=== PATIENT | male | born 1930 | race Caucasian/White ===

== ENCOUNTER 2016-06-20 08:51 | Inpatient (IN) | payer MEDICARE, OTHER ==
[2016-06-20] MEDS ORDERED: IPRATROPIUM-ALBUTEROL 3 ML NEB INHALATION STA (10:01)
--- NOTE | 2016-06-20 10:10 | ED ---
General Adult HPI - General Chief complaint: Recheck/Abnormal Lab/Rx Stated complaint: LOW SUGAR Time Seen by Provider: 06/20/16 09:19 Source: patient Mode of arrival: wheelchair Limitations: no limitations - History of Present Illness Initial comments: This patient is an 85-year-old man who presents to be evaluated for a number of symptoms. The patient states that he woke this morning couple of hours ago with a feeling that his heart was racing and that he was short of breath. Patient also felt a little bit sweaty. He found that his blood sugar was around 50. Patient presented here because he was concerned about the heart palpitations and shortness of breath. He did eat and the blood sugar had improved somewhat. In reviewing the patient's systems, it is found that he has been having some exertional dyspnea going on for a week to 2, and he has also had a cough with some whitish sputum. Patient denies chest pain. He denies fever or chills. He has not had any congestion or upper respiratory symptoms. The patient does note that he has measured his pulse ox and it was in the upper 80s to 90, and did not seem to improve with taking his home nebulized treatment. -: hour(s) - Related Data Home Medications Medication Instructions Recorded Confirmed Fluticasone/Salmeterol [Advair 1 puff INHALATION RT-BID 01/16/14 06/20/16 100-50 Diskus] Diltiazem HCl [Diltiazem 24Hr ER] 180 mg PO DAILY 06/12/14 06/20/16 Ipratropium-Albuterol Nebulize 3 ml INHALATION RT-TID PRN 10/31/14 06/20/16 [Duoneb 0.5 mg-3 mg/3 ml Soln] Digoxin [Lanoxin] 125 mcg PO Q48H 07/31/15 06/20/16 ALPRAZolam [Xanax] 0.25 mg PO QID PRN 10/13/15 06/20/16 Allopurinol [Zyloprim] 100 mg PO DAILY 10/13/15 06/20/16 Warfarin [Coumadin] 2.5 mg PO SUMOWETHSA 11/11/15 06/20/16 Warfarin [Coumadin] 5 mg PO TUFR 11/11/15 06/20/16 Furosemide [Lasix] 20 mg PO TID 11/27/15 06/20/16 Insulin Detemir [Levemir] See Protocol SQ HS 06/20/16 06/20/16 [place]-3 Fatty Acids/Fish Oil [Fish 1 cap PO DAILY 06/20/16 06/20/16 Oil 1,000 mg Softgel] Psyllium Husk 100% [Metamucil] 6 gm PO DAILY 06/20/16 06/20/16 Simvastatin [Zocor] 10 mg PO Q48H 06/20/16 06/20/16 Previous Rx's Medication Instructions Recorded Glimepiride [Amaryl] 4 mg PO AC-BID tab 08/05/14 Metoprolol Succinate (ER) [Toprol 50 mg PO BID tab.er.24h 08/05/14 XL] Chlorthalidone [Hygroton] 12.5 mg PO DAILY tab 10/24/14 Allergies Allergy/AdvReac Type Severity Reaction Status Date / Time Sulfa (Sulfonamide Allergy Unknown Unknown Verified 06/20/16 10:47 Antibiotics) Childhood benazepril Allergy tongue Verified 06/20/16 10:47 swelling Review of Systems ROS Statement: Those systems with pertinent positive or pertinent negative responses have been documented in the HPI. ROS Other: All systems not noted in ROS Statement are negative. Constitutional: Reports: weakness (Generalized weakness and fatigue for about a week). Denies: fever, chills ENT: Denies: throat pain, congestion Respiratory: Reports: as per HPI, cough. Denies: wheezes, hemoptysis Cardiovascular: Reports: palpitations, dyspnea on exertion, orthopnea. Denies: chest pain, edema, syncope Endocrine: Reports: fatigue Gastrointestinal: Denies: abdominal pain, nausea, vomiting, melena, hematochezia Genitourinary: Reports: other (Chronic indwelling Henderson catheter for over a year ). Denies: dysuria, hematuria Musculoskeletal: Denies: back pain Skin: Denies: rash Neurological: Reports: weakness. Denies: headache, numbness, confusion Past Medical History Past Medical History: Atrial Fibrillation, Coronary Artery Disease (CAD), Cancer , Heart Failure, COPD, Diabetes Mellitus, GERD/Reflux, Hyperlipidemia, Hypertension, Osteoarthritis (OA), Pneumonia Additional Past Medical History / Comment(s): Recent pneumonia 10/23/14, Back pain with history of spinal stenosis and significant radicular pains. Chronic renal failure with stage III Chronic Kidney disease, Skin ca, Home O2@ 2 liters n/c @ HS. ,Chronic henderson catheter for BPH pt stated it was just changed thursday07-29-15.ibs.cellulitis lt index finger,neuropathy in feet History of Any Multi-Drug Resistant Organisms: Other MDRO Past Surgical History: Appendectomy, Cholecystectomy, Tonsillectomy Additional Past Surgical History / Comment(s): RIGHT LUNG TUMOR REMOVED ( hematoma) per patient., Vasectomy, Cataracts, PAIN CLINIC PROCEDURES Past Anesthesia/Blood Transfusion Reactions: No Reported Reaction Past Psychological History: Anxiety Additional Psychological History / Comment(s): pt served in [employer], worked at [employer]. pt lives with his , uses a walker when up. admits to falls from missing his chair and landing on floor. no current home care services. Smoking Status: Former smoker Past Alcohol Use History: None Reported Additional Past Alcohol Use History / Comment(s): started smoking at age 18- smoked 1-2 ppd quit 2003. pt stated when younger drank alot but quit 30 years ago Past Drug Use History: None Reported - Past Family History Father Family Medical History: Diabetes Mellitus Additional Family Medical History / Comment(s): at age 78- anuerysm Mother Family Medical History: CVA/TIA Additional Family Medical History / Comment(s): age 78- ?aneurysm General Exam Limitations: no limitations General appearance: alert, in no apparent distress Head exam: Present: atraumatic, normocephalic Eye exam: Present: normal appearance. Absent: scleral icterus, conjunctival injection Neck exam: Present: normal inspection Respiratory exam: Present: rhonchi. Absent: normal lung sounds bilaterally, wheezes, rales, stridor, chest wall tenderness, accessory muscle use, decreased breath sounds Cardiovascular Exam: Present: tachycardia (Rate is approximately 108 at my exam) , irregular rhythm, normal heart sounds. Absent: systolic murmur, diastolic murmur, rubs, gallop GI/Abdominal exam: Present: soft, organomegaly (Hepatomegaly). Absent: distended, tenderness, guarding, rebound, rigid, pulsatile mass, hernia Extremities exam: Present: normal inspection, normal capillary refill. Absent: pedal edema, calf tenderness Back exam: Present: normal inspection. Absent: CVA tenderness (R), CVA tenderness (L) Neurological exam: Present: alert Skin exam: Present: warm, dry, intact, normal color. Absent: rash Course Vital Signs 06/20/16 06/20/16 06/20/16 08:54 09:54 10:20 Temperature 96.9 F L Pulse Rate 99 94 101 H Respiratory 18 Rate Blood Pressure 133/69 127/76 O2 Sat by Pulse 93 L 91 L Oximetry 06/20/16 06/20/16 06/20/16 10:29 11:41 12:29 Temperature Pulse Rate 103 H 105 H 97 Respiratory 24 26 H Rate Blood Pressure 129/78 111/68 O2 Sat by Pulse 96 94 L Oximetry 06/20/16 06/20/16 06/20/16 13:33 14:29 15:26 Temperature 98.7 F 98 F Pulse Rate 91 103 H 94 Respiratory 26 H 26 H 24 Rate Blood Pressure 117/63 122/60 122/79 O2 Sat by Pulse 94 L 94 L 96 Oximetry 06/20/16 16:37 Temperature 97.8 F Pulse Rate 66 Respiratory 18 Rate Blood Pressure 150/78 O2 Sat by Pulse 100 Oximetry EKG Findings - EKG Results: EKG: interpreted by ERMD, normal axis, normal QRS EKG shows: tachycardia (Rate is approximately 103 bpm), atrial fibrillation - Blocks, [place], Hypertrophy, ST Abn: Repolarization changes or abnormalities: nonspecific abnormality, ST segment, and/or T wave Medical Decision Making - Lab Data Result diagrams: 06/20/16 09:21 06/20/16 09:21 Lab Results 06/20/16 06/20/16 06/20/16 Range/Units 09:03 09:21 09:21 WBC 13.6 H (3.8-10.6) k/uL RBC 4.49 (4.30-5.90) m/uL Hgb 13.6 (13.0-17.5) gm/dL Hct 41.5 (39.0-53.0) % MCV 92.6 (80.0-100.0) fL MCH 30.3 (25.0-35.0) pg MCHC 32.8 (31.0-37.0) g/dL RDW 13.8 (11.5-15.5) % Plt Count 352 (150-450) k/uL Neutrophils % 82 % Lymphocytes % 7 % Monocytes % 5 % Eosinophils % 1 % Basophils % 1 % Neutrophils # 11.1 H (1.3-7.7) k/uL Lymphocytes # 1.0 (1.0-4.8) k/uL Monocytes # 0.7 (0-1.0) k/uL Eosinophils # 0.2 (0-0.7) k/uL Basophils # 0.1 (0-0.2) k/uL PT (9.0-12.0) sec INR (<1.1) APTT (22.0-30.0) sec D-Dimer (<0.60) mg/L FEU Sodium 132 L (137-145) mmol/L Potassium 5.3 H (3.5-5.1) mmol/L Chloride 89 L (98-107) mmol/L Carbon Dioxide 33 H (22-30) mmol/L Anion Gap 10 mmol/L BUN 37 H (9-20) mg/dL Creatinine 1.21 (0.66-1.25) mg/dL Est GFR (MDRD) Af Amer >60 (>60 ml/min/1.73 sqM) Est GFR (MDRD) Non-Af 57 (>60 ml/min/1.73 sqM) Glucose 87 (74-99) mg/dL POC Glucose (mg/dL) 85 (75-99) mg/dL POC Glu Electronic Security Technician ID Jennifer Benson Plasma Lactic Acid Stalin (0.7-2.0) mmol/L Calcium 9.5 (8.4-10.2) mg/dL Magnesium 1.6 (1.6-2.3) mg/dL Total Bilirubin 0.7 (0.2-1.3) mg/dL AST 207 H (17-59) U/L ALT 171 H (21-72) U/L Alkaline Phosphatase 180 H (38-126) U/L Total Creatine Kinase (55-170) U/L CK-MB (CK-2) (0.0-2.4) ng/mL CK-MB (CK-2) Rel Index Troponin I (0.000-0.034) ng/mL NT-Pro-B Natriuret Pep pg/mL Total Protein 6.4 (6.3-8.2) g/dL Albumin 3.3 L (3.5-5.0) g/dL 06/20/16 06/20/16 06/20/16 Range/Units 09:21 09:21 09:21 WBC (3.8-10.6) k/uL RBC (4.30-5.90) m/uL Hgb (13.0-17.5) gm/dL Hct (39.0-53.0) % MCV (80.0-100.0) fL MCH (25.0-35.0) pg MCHC (31.0-37.0) g/dL RDW (11.5-15.5) % Plt Count (150-450) k/uL Neutrophils % % Lymphocytes % % Monocytes % % Eosinophils % % Basophils % % Neutrophils # (1.3-7.7) k/uL Lymphocytes # (1.0-4.8) k/uL Monocytes # (0-1.0) k/uL Eosinophils # (0-0.7) k/uL Basophils # (0-0.2) k/uL PT 57.1 H (9.0-12.0) sec INR 5.7 H* (<1.1) APTT 36.1 H (22.0-30.0) sec D-Dimer 2.86 H (<0.60) mg/L FEU Sodium (137-145) mmol/L Potassium (3.5-5.1) mmol/L Chloride (98-107) mmol/L Carbon Dioxide (22-30) mmol/L Anion Gap mmol/L BUN (9-20) mg/dL Creatinine (0.66-1.25) mg/dL Est GFR (MDRD) Af Amer (>60 ml/min/1.73 sqM) Est GFR (MDRD) Non-Af (>60 ml/min/1.73 sqM) Glucose (74-99) mg/dL POC Glucose (mg/dL) (75-99) mg/dL POC Glu Electronic Security Technician ID Plasma Lactic Acid Stalin (0.7-2.0) mmol/L Calcium (8.4-10.2) mg/dL Magnesium (1.6-2.3) mg/dL Total Bilirubin (0.2-1.3) mg/dL AST (17-59) U/L ALT (21-72) U/L Alkaline Phosphatase (38-126) U/L Total Creatine Kinase 147 (55-170) U/L CK-MB (CK-2) 3.4 H* (0.0-2.4) ng/mL CK-MB (CK-2) Rel Index 2.3 Troponin I <0.012 (0.000-0.034) ng/mL NT-Pro-B Natriuret Pep 1700 pg/mL Total Protein (6.3-8.2) g/dL Albumin (3.5-5.0) g/dL 06/20/16 Range/Units 11:14 WBC (3.8-10.6) k/uL RBC (4.30-5.90) m/uL Hgb (13.0-17.5) gm/dL Hct (39.0-53.0) % MCV (80.0-100.0) fL MCH (25.0-35.0) pg MCHC (31.0-37.0) g/dL RDW (11.5-15.5) % Plt Count (150-450) k/uL Neutrophils % % Lymphocytes % % Monocytes % % Eosinophils % % Basophils % % Neutrophils # (1.3-7.7) k/uL Lymphocytes # (1.0-4.8) k/uL Monocytes # (0-1.0) k/uL Eosinophils # (0-0.7) k/uL Basophils # (0-0.2) k/uL PT (9.0-12.0) sec INR (<1.1) APTT (22.0-30.0) sec D-Dimer (<0.60) mg/L FEU Sodium (137-145) mmol/L Potassium (3.5-5.1) mmol/L Chloride (98-107) mmol/L Carbon Dioxide (22-30) mmol/L Anion Gap mmol/L BUN (9-20) mg/dL Creatinine (0.66-1.25) mg/dL Est GFR (MDRD) Af Amer (>60 ml/min/1.73 sqM) Est GFR (MDRD) Non-Af (>60 ml/min/1.73 sqM) Glucose (74-99) mg/dL POC Glucose (mg/dL) (75-99) mg/dL POC Glu Electronic Security Technician ID Plasma Lactic Acid Stalin 1.9 (0.7-2.0) mmol/L Calcium (8.4-10.2) mg/dL Magnesium (1.6-2.3) mg/dL Total Bilirubin (0.2-1.3) mg/dL AST (17-59) U/L ALT (21-72) U/L Alkaline Phosphatase (38-126) U/L Total Creatine Kinase (55-170) U/L CK-MB (CK-2) (0.0-2.4) ng/mL CK-MB (CK-2) Rel Index Troponin I (0.000-0.034) ng/mL NT-Pro-B Natriuret Pep pg/mL Total Protein (6.3-8.2) g/dL Albumin (3.5-5.0) g/dL Disposition Clinical Impression: CHF exacerbation, Elevated d-dimer, Hyperkalemia, Coumadin toxicity Disposition: ADMITTED IP TO THIS HOSP Condition: Fair Referrals: Jatinder Collier MD [Primary Care Provider] - 1-2 days
[2016-06-20 10:22] LABS: Basophils # (A) 0.1 k/uL (0-0.2); Basophils % (A) 1 %; CHCM 33.6; Eosinophils # (A) 0.2 k/uL (0-0.7); Eosinophils % (A) 1 %; HCT 41.5 % (39.0-53.0); HDW 2.72; HGB 13.6 gm/dL (13.0-17.5); Luc # (Auto) 0.45; Luc % (Auto) 3; Lymphocytes % (A) 7 %; MCH 30.3 pg (25.0-35.0); MCHC 32.8 g/dL (31.0-37.0); MCV 92.6 fL (80.0-100.0); Mean Platelet Volume 6.7; Monocytes # (A) 0.7 k/uL (0-1.0); Monocytes % (A) 5 %; Neutrophils # (A) 11.1 k/uL (1.3-7.7); Neutrophils % (A) 82 %; RBC 4.49 m/uL (4.30-5.90); RDW 13.8 % (11.5-15.5); WBC 13.6 k/uL (3.8-10.6); WBC (Perox) 13.49
[2016-06-20 10:35] LABS: ALT 171 U/L (21-72); AST 207 U/L (17-59); Alkaline Phosphatase 180 U/L (38-126); Anion Gap 10 mmol/L; Blood Urea Nitrogen 37 mg/dL (9-20); Calcium 9.5 mg/dL (8.4-10.2); Carbon Dioxide 33 mmol/L (22-30); Chloride 89 mmol/L (98-107); Glucose 87 mg/dL (74-99); Magnesium 1.6 mg/dL (1.6-2.3); Non-African American GFR(MDRD) 57 (>60 ml/min/1.73 sqM); Potassium 5.3 mmol/L (3.5-5.1); Sodium 132 mmol/L (137-145); Total Bilirubin 0.7 mg/dL (0.2-1.3); Total Protein 6.4 g/dL (6.3-8.2)
[2016-06-20 10:41] LABS: Creatine Kinase 147 U/L (55-170)
[2016-06-20 10:42] LABS: Partial Thromboplastin Time 36.1 sec (22.0-30.0); Prothrombin Time 57.1 sec (9.0-12.0)
--- NOTE | 2016-06-20 10:45 | XR ---
EXAMINATION TYPE: XR chest 2V DATE OF EXAM: 06/20/2016 10:34 AM COMPARISON: Chest x-ray November 27, 2015. HISTORY: Shortness of breath. TECHNIQUE: Frontal and lateral views of the chest are obtained. FINDINGS: The cardiac silhouette size is stable and within normal limits with atherosclerotic thoraci c aorta. There is small right pleural effusion. There is increasing left basilar opacity upper lungs are clear without pneumothorax. Osseous structures are intact. IMPRESSION: New small right pleural effusion. Prominent left basilar infiltrate and/or atelectasis o n current study.
[2016-06-20 10:48] LABS: INR 5.7 (<1.1)
[2016-06-20] MEDS ORDERED: LEVOFLOXACIN 750MG-D5W PMX 750 MG in DEXTROSE/WATER 1 150ML.BAG IVPB STA (10:52)
[2016-06-20 10:55] LABS: Troponin I <0.012 ng/mL (0.000-0.034)
[2016-06-20 10:59] LABS: Creatine Kinase MB 3.4 ng/mL (0.0-2.4)
[2016-06-20] MEDS ORDERED: FUROSEMIDE 10 MG/ML 4 ML VIAL IV STA (12:46)
[2016-06-20] MEDS ORDERED: LORazepam 2 MG/ML SYRINGE IV STA (14:24)
[2016-06-20] MEDS ORDERED: MORPHINE SULFATE 4 MG/ML SYRINGE IV STA (14:24)
[2016-06-20 14:26] LABS: Glucose,Whole Blood 85 mg/dL (75-99)
[2016-06-20 18:15] LABS: Glucose,Whole Blood 57 mg/dL (75-99)
[2016-06-20] MEDS: DIGOXIN 125 MCG TAB PO SCH (18:54)
[2016-06-20 18:55] LABS: Glucose,Whole Blood 79 mg/dL (75-99)
[2016-06-20] MEDS: IPRATROPIUM-ALBUTEROL 3 ML NEB INHALATION PRN (19:37)
[2016-06-20] MEDS: METOPROLOL SUCCINATE (ER) 50 MG TAB.ER.24H PO SCH (20:22)
[2016-06-20 20:28] LABS: Glucose,Whole Blood 81 mg/dL (75-99)
[2016-06-20] MEDS ORDERED: INSULIN GLARGINE 100 UNIT/ML 10 ML VIAL SQ SCH (21:00)
[2016-06-20] MEDS ORDERED: FUROSEMIDE 20 MG TAB PO SCH (22:00)
[2016-06-20] MEDS: INSULIN GLARGINE 100 UNIT/ML 10 ML VIAL SQ SCH (23:43)
[2016-06-21 04:02] LABS: Prothrombin Time 52.1 sec (9.0-12.0)
[2016-06-21 04:09] LABS: ALT 156 U/L (21-72); AST 202 U/L (17-59); Alkaline Phosphatase 169 U/L (38-126); Anion Gap 10 mmol/L; Blood Urea Nitrogen 42 mg/dL (9-20); Calcium 9.5 mg/dL (8.4-10.2); Carbon Dioxide 32 mmol/L (22-30); Chloride 90 mmol/L (98-107); Non-African American GFR(MDRD) 48 (>60 ml/min/1.73 sqM); Potassium 4.7 mmol/L (3.5-5.1); Sodium 132 mmol/L (137-145); Total Bilirubin 0.7 mg/dL (0.2-1.3)
[2016-06-21 04:12] LABS: INR 5.2 (<1.1)
[2016-06-21 04:19] LABS: Glucose 50 mg/dL (74-99)
[2016-06-21 04:37] LABS: Hepatitis B Surface Ag Index 0.08
[2016-06-21 04:42] LABS: Hepatitis B Core IgM Index 0.05
[2016-06-21 04:44] LABS: Glucose,Whole Blood 75 mg/dL (75-99)
[2016-06-21 04:54] LABS: Hepatitis C Virus IgG Index 0.06
[2016-06-21 05:00] LABS: Hepatitis C Virus IgG Ab Negative (Negative)
[2016-06-21 06:14] LABS: Glucose,Whole Blood 94 mg/dL (75-99)
--- NOTE | 2016-06-21 06:22 | HP ---
DATE OF ADMISSION: CHIEF COMPLAINT: Shortness of breath. HISTORY OF PRESENT ILLNESS: This 85-year-old gentleman presents to the emergency room with complaints of shortness of breath. The patient said this morning he got up, he felt somewhat diaphoretic and noted his blood sugar was low. The patient understands the symptoms of hypoglycemia. He said after that he felt better. He fell asleep. He started having some heavy palpitations brief and then felt short of breath. Denied any chest pain, any fever or chills. The patient, in view of this, presents to the emergency room. He has history of multiple chronic conditions including diabetes, advanced COPD, chronic atrial fibrillation. The patient in the emergency room treated with some improvement. The symptoms seemed to have improved after he was given some Ativan. Patient was also given some diuretic because of an elevated BNP. The patient had an echocardiogram done couple of years ago where ejection fraction was 55 to 60% and mild to moderate aortic stenosis. The patient does have a history of chronic cough. Also has an atonic bladder and has a Cornejo catheter. Patient has chronic anxiety and BPH. PAST SURGICAL HISTORY: Significant for appendectomy, cholecystectomy, tonsillectomy and a partial lobectomy right lower lobe. There was a benign nodule. PERSONAL HISTORY: The patient is an ex-smoker, alcohol none. ALLERGIES: ANGIOEDEMA WITH ALEJANDRINA INHIBITORS. PATIENT ALLERGIC TO SULFA. MEDICATIONS: 1. Lantus 30 units every evening. He had actually cut it down last night. 2. Tramadol 50 mg p.r.n. t.i.d. 3. Zyrtec 1 tablet p.r.n. daily. 4. Glimepiride 4 mg b.i.d. 5. Advair 100/50, 1 puff b.i.d. 6. Warfarin 5 mg 3 days a week and 2.5 mg 4 days a week. 7. Chlorthalidone 25 mg daily. 8. Zocor 10 mg q.48 hours. 9. Metamucil daily. 10. Fish oil daily. 11. Toprol-XL 50 mg b.i.d. 12. DuoNeb updraft t.i.d. to q.i.d. 13. Amaryl 4 mg p.o. a.c. b.i.d. 14. Lasix 20 mg daily. 15. Cardizem CD 180 mg daily. 16. Digoxin 125 mcg every other day. 17. Hygroton 12.5 mg daily. 18. Allopurinol 100 mg daily. 19. Xanax 0.25 mg q.i.d. p.r.n. SOCIAL HISTORY: Patient is and lives with spouse. FAMILY MEDICAL HISTORY: Noncontributory. He has a son in adequate health. REVIEW OF SYSTEMS: NEURO: Denies any headaches, dizziness. PSYCH: Chronic anxiety. CARDIAC: Denies chest pain, angina. A very brief episode of palpitation. RESPIRATORY: Present complaint of shortness of breath, cough. No hemoptysis. GI: No nausea, vomiting, abdominal pain, diarrhea. : No symptoms of dysuria, hematuria, urgency, frequency. EXTREMITIES: No pain. CONSTITUTIONAL: No fever or chills. PHYSICAL EXAMINATION: Pleasant gentleman, at present is fairly comfortable in no major distress, is mildly tachypneic. Vital signs reveal temperature was 97.1, pulse 107, respirations 20, blood pressure recorded earlier was 113/70, pulse ox 95% on 3-L. HEENT: Normocephalic. Neck no JVD. Pupils reactive. Oral cavity is moist. The patient recently had a biopsy, which was reportedly nonmalignant ulcer. NECK: Reveals no JVD, carotid bruits, thyromegaly. No supraclavicular lymphadenopathy. CHEST EXAMINATION: The patient has a barrel-shaped chest with increased percussion noted bilaterally, generalized decreased air flow, scattered rhonchi, especially at the right base. CARDIAC: Distant heart sounds. S1, S2 with no gallops. Systolic murmur 2/6 left sternal border. Irregular rhythm. ABDOMEN: Soft. Bowel sounds present. EXTREMITIES: Reveal 1+ edema. NEUROLOGICALLY: Awake, alert, oriented with well coordinated movements. LABORATORY ASSESSMENT: Chest x-ray which reveals bilateral basilar infiltrates. White count 13.6, hemoglobin 13.6, INR 5.7. D-dimer 2.86. Sodium 132, potassium 5.3, CO2 of 133, BUN 37, creatinine 1.21, GFR 57. AST, ALT elevated at 207, 171. Troponins less than 0.112. The patient's bilirubin was normal. ASSESSMENT: 1. Dyspnea due to chronic obstructive pulmonary disease exacerbation. Rule out early pneumonia. 2. Chronic atrial fibrillation. 3. Diabetes mellitus. 4. Elevated liver function tests suggestive of hepatocellular. PLAN: The patient at present has been placed on IV antibiotics. The patient's statin drugs will be held. Patient's general condition discussed with the patient. Prognosis remains guarded. Will treat the patient with updrafts and antibiotic. Prognosis remains guarded. Patient will be followed by Dr. Denise upon my absence.
[2016-06-21] MEDS: SYMBICORT 80-4.5 MCG INHALER INHALATION SCH ×3 (06:36→10:16)
[2016-06-21] MEDS ORDERED: GLIMEPIRIDE 4 MG TAB PO SCH (07:30)
[2016-06-21] MEDS: IPRATROPIUM-ALBUTEROL 3 ML NEB INHALATION PRN ×3 (08:15→20:24)
[2016-06-21] MEDS: PIPERACILLIN-TAZOBACTAM 3.375 GM in DEXTROSE/WATER 1 50ML.BAG IVPB SCH ×4 (08:53→23:39)
[2016-06-21] MEDS: DILTIAZEM CD 180 MG CAP.ER.24H PO SCH (08:53)
[2016-06-21] MEDS: ALLOPURINOL 100 MG TAB PO SCH (08:53)
[2016-06-21] MEDS: CHLORTHALIDONE 25 MG TAB PO SCH (08:54)
[2016-06-21] MEDS: PSYLLIUM HUSK 100% 6 GM PACKET PO SCH (08:55)
[2016-06-21] MEDS ORDERED: ATORVASTATIN 10 MG TAB PO SCH (09:00)
[2016-06-21] MEDS ORDERED: FUROSEMIDE 10 MG/ML 2 ML VIAL IV ONE (09:00)
[2016-06-21] MEDS: METOPROLOL SUCCINATE (ER) 50 MG TAB.ER.24H PO SCH ×2 (09:07→20:14)
[2016-06-21 12:17] LABS: Glucose,Whole Blood 100 mg/dL (75-99)
--- NOTE | 2016-06-21 15:20 | ECHOF ---
Referral Reason:Heart Failure MEASUREMENTS -------- HEIGHT: 152.4 cm WEIGHT: 90.3 kg BP: RVIDd: 3.5 cm (< 3.3) IVSd: 1.4 cm (0.6 - 1.1) LVIDd: 3.9 cm (3.9 - 5.3) LVPWd: 1.2 cm (0.6 - 1.1) IVSs: 1.6 cm LVIDs: 3.5 cm LVPWs: 1.3 cm LAESV Index (A-L): 36.99 ml/m Ao Diam: 3.7 cm (2.0 - 3.7) AV Cusp: 1.9 cm (1.5 - 2.6) LA Diam: 5.4 cm (2.7 - 3.8) MV EXCURSION: 22.256 mm (> 18.000) MV EF SLOPE: 94 mm/s (70 - 150) EPSS: 1.0 cm MV E Gerardo: 0.96 m/s MV DecT: 186 ms MV A Gerardo: 0.76 m/s MV E/A Ratio: 1.27 AV maxP.86 mmHg AV meanP.96 mmHg RAP: 5.00 mmHg RVSP: 45.82 mmHg FINDINGS -------- Atrial fibrillation. This was a technically adequate study. There is mild concentric left ventricular hypertrophy. Overall left ventricular systolic function is low-normal with, an EF between 50 - 55 %. Basal inferior LV wall motion is hypokinetic. The right ventricle is normal in size. LA is moderately dilated 34-39 ml/m2 The right atrial size is normal. Peak/mean gradient across the Aortic Valve is 22.86mmHg / 13.96mmHg. Aov is stenotic with decrease opening. Mild mitral annular calcification present. Mild mitral regurgitation is present. Mild tricuspid regurgitation present. There is mild to moderate pulmonary hypertension. The right ventricular systolic pressure, as measured by Doppler, is 45.82mmHg. There is no pulmonic regurgitation present. The aortic root size is normal. There is no pericardial effusion. CONCLUSIONS -------- 1. There is mild concentric left ventricular hypertrophy. 2. There is mild to moderate pulmonary hypertension. 3. The right ventricular systolic pressure, as measured by Doppler, is 45.82mmHg. 4. Overall left ventricular systolic function is low-normal with, an EF between 50 - 55 %. 5. Basal inferior LV wall motion is hypokinetic. 6. LA is moderately dilated 34-39 ml/m2 7. Peak/mean gradient across the Aortic Valve is 22.86mmHg / 13.96mmHg. 8. Aov is stenotic with decrease opening. 9. Mild mitral annular calcification present. 10. Mild mitral regurgitation is present. 11. Mild tricuspid regurgitation present. ENGINEERING CLERK: Jennifer Loredo RDCS
--- NOTE | 2016-06-21 16:32 | PN ---
CHIEF COMPLAINT: Re-evaluation. HISTORY OF PRESENT ILLNESS: This is an 85-year-old who was admitted to the hospital because of shortness of breath. Patient clinically has evidence suggestive of COPD exacerbation. REVIEW OF SYSTEMS: NEURO: He denies any headaches, dizziness. PSYCH: Chronic anxiety. CARDIAC: No chest pain, angina, palpitations. RESPIRATORY: Denies shortness of breath today, does have cough. No significant sputum production. CARDIAC: No chest pain, palpitations. GI: No nausea, vomiting, abdominal pain, diarrhea. : No symptoms of dysuria or hematuria. Has IDC. EXTREMITIES: Denies pain. Does have edema which is improved. CONSTITUTIONAL: No fever or chills. PHYSICAL EXAMINATION: Pleasant gentleman. Vital signs revealed temperature 96.9, pulse 111, respirations 18, blood pressure 107/58, pulse ox 98% on 2 liters. HEENT: Normocephalic. NECK: No JVD. CHEST: Increased percussion noted bilateral with decreased generalized air flow bilateral scattered rhonchi, especially at the bases. CARDIAC: Distant heart sounds. S1, S2 with no gallops. Systolic murmur 2/6 left sternal border. ABDOMEN: Soft. Bowel sounds present. Extremities reveal trace edema. NEUROLOGIC: Awake, alert, oriented with well-coordinated movements. LABORATORY ASSESSMENT: Blood sugar was low this morning at 50, sodium 132, potassium 4.7, chloride 90, CO2 content 32. BUN 42, creatinine 1.1. The patient elevated liver enzymes 202, AST ALT is 156, etiology unclear. ASSESSMENT: 1. Chronic obstructive pulmonary disease exacerbation. 2. Chronic atrial fibrillation. 3. Diabetes mellitus with hypoglycemic episode probably due to hepatic inflammation. 4. Acute noninfected hepatitis, etiology undetermined. PLAN: Continue present medical regimen. The patient's condition discussed with the patient. The patient has some significant congestive heart failure symptoms. He had an echocardiogram done today. Continue COPD management ( ) the patient Glimepiride will be discontinued, patient's simvastatin was discontinued. Prognosis is guarded. Patient's condition discussed with the patient. Patient will be followed by Dr. Witt in my absence.
[2016-06-21 16:49] LABS: Glucose,Whole Blood 164 mg/dL (75-99)
[2016-06-21] MEDS: ALPRAZolam 0.25 MG TAB PO PRN (20:14)
[2016-06-21 20:33] LABS: Glucose,Whole Blood 281 mg/dL (75-99)
[2016-06-21] MEDS: INSULIN GLARGINE 100 UNIT/ML 10 ML VIAL SQ SCH (21:34)
[2016-06-22 05:52] LABS: Glucose,Whole Blood 75 mg/dL (75-99)
[2016-06-22 06:21] LABS: Calcium 9.3 mg/dL (8.4-10.2); Potassium 4.3 mmol/L (3.5-5.1); Total Bilirubin 0.6 mg/dL (0.2-1.3); Total Protein 5.5 g/dL (6.3-8.2)
--- NOTE | 2016-06-22 07:35 | XR ---
EXAMINATION TYPE: XR chest 2V DATE OF EXAM: 06/22/2016 6:35 AM COMPARISON: Prior chest x-ray 20 June 2016 HISTORY: Shortness of breath, COPD TECHNIQUE: Frontal and lateral views of the chest are obtained. FINDINGS: Similar findings. Prominent lung volumes compatible with COPD. Increased density persists in the retrocardiac location. Persistent blunting of the right costophrenic angle may reflect some at electasis, effusion, airspace disease. No evident pneumothorax. Heart size is stable. IMPRESSION: Correlate for possible pneumonia. Follow-up to resolution.
[2016-06-22 07:40] LABS: INR 3.5 (<1.1); Prothrombin Time 34.1 sec (9.0-12.0)
[2016-06-22] MEDS: PIPERACILLIN-TAZOBACTAM 3.375 GM in DEXTROSE/WATER 1 50ML.BAG IVPB SCH ×3 (08:20→23:15)
[2016-06-22] MEDS: PSYLLIUM HUSK 100% 6 GM PACKET PO SCH (08:20)
[2016-06-22] MEDS: ALLOPURINOL 100 MG TAB PO SCH (08:20)
[2016-06-22] MEDS: DILTIAZEM CD 180 MG CAP.ER.24H PO SCH (08:20)
[2016-06-22] MEDS: METOPROLOL SUCCINATE (ER) 50 MG TAB.ER.24H PO SCH ×2 (08:20→19:51)
[2016-06-22] MEDS: CHLORTHALIDONE 25 MG TAB PO SCH (08:20)
[2016-06-22] MEDS: SYMBICORT 80-4.5 MCG INHALER INHALATION SCH ×2 (08:32→20:52)
[2016-06-22] MEDS: IPRATROPIUM-ALBUTEROL 3 ML NEB INHALATION PRN ×3 (08:32→20:53)
[2016-06-22] MEDS ORDERED: Magnesium Replacement Protocol 1 EACH MISC MISCELLANE PRN (08:40)
--- NOTE | 2016-06-22 09:27 | P.PN ---
Progress Note - Text The patient is an 85-year-old gentleman, a patient of Dr. Jatinder Crook for whom I am covering. The patient was admitted 2 days previous with exacerbation of underlying COPD. It appears on chest x-ray that he has a retrocardiac infiltrate/pneumonia. Patient has been treated with antibiotics with IV piperacillin. Patient also has chronic atrial fibrillation, type 2 diabetes and recently has been found to have elevated liver function testing of unknown etiology. Patient still has a harsh cough. States though he feels somewhat better. Less short of breath. No chest pain. No nausea or vomiting. No abdominal discomfort. He also has chronic indwelling Cornejo catheter. Temperature is 96.9 with a pulse of 104 and irregular. Respirations are 18. Last blood pressure 128/67 and he is 94% saturated on 2 L. The patient does have a slight inspiratory wheeze on the right posterior base. Heart tones are somewhat irregular and distant. No definite murmurs or rubs appreciated. Abdomen is obese but soft and nontender. No unusual distal edema. He is alert and oriented. No cranial nerve deficits or focal weakness noted. INR this morning is 3.5. Labs reveal a sodium 131 with potassium 4.3. BUN was 53 with creatinine 1.17 with him a GFR of 38. Liver function tests are showing a decrease in AST down to 169. ALT is still at 137 and alk phos 152. Bilirubin normal at 0.6. Accu-Chek presently is 75. INR is improved from 5.2 down to 3.5. A chest x-ray today was compared to 2 days previous. Continued to show a retrocardiac density. Lung volumes compatible with COPD. Blunting of the right costophrenic angle was present. Overall outputs appear to be satisfactory. With 2 L. Although weight is slightly up at 91.4 kg from 90.7. Impressions and plans: Discussed with patient and family and staff at bedside. At this time we'll continue present antibiotics. Await results of further liver function tests with labs tomorrow. His cholesterol and diabetic medication has been held in light of elevated liver function tests.
[2016-06-22] MEDS: MAGNESIUM SULFATE-D5W PMX 1 GM in DEXTROSE/WATER 1 100ML.BAG IVPB SCH ×2 (09:29→10:35)
[2016-06-22 11:51] LABS: Glucose,Whole Blood 178 mg/dL (75-99)
[2016-06-22 17:05] LABS: Glucose,Whole Blood 255 mg/dL (75-99)
[2016-06-22] MEDS: DIGOXIN 125 MCG TAB PO SCH (17:44)
[2016-06-22 20:44] LABS: Glucose,Whole Blood 121 mg/dL (75-99)
[2016-06-22] MEDS: INSULIN LISPRO (humaLOG) 300 UNIT/3 ML VIAL SQ SCH (21:40)
[2016-06-22] MEDS: INSULIN GLARGINE 100 UNIT/ML 10 ML VIAL SQ SCH (21:43)
[2016-06-23 02:54] LABS: Glucose,Whole Blood 79 mg/dL (75-99)
[2016-06-23] MEDS ORDERED: FUROSEMIDE 10 MG/ML 2 ML VIAL IV ONE (04:02)
[2016-06-23] MEDS: ALPRAZolam 0.25 MG TAB PO PRN ×2 (04:50→20:45)
[2016-06-23 05:50] LABS: Glucose,Whole Blood 132 mg/dL (75-99)
[2016-06-23] MEDS: INSULIN LISPRO (humaLOG) 300 UNIT/3 ML VIAL SQ SCH ×4 (06:13→20:26)
[2016-06-23 06:18] LABS: Basophils # (A) 0.1 k/uL (0-0.2); Basophils % (A) 1 %; CH 30.9; CHCM 33.2; Eosinophils # (A) 0.2 k/uL (0-0.7); Eosinophils % (A) 2 %; HCT 37.5 % (39.0-53.0); HDW 2.62; HGB 12.3 gm/dL (13.0-17.5); Luc # (Auto) 0.42; Luc % (Auto) 3; Lymphocytes # (A) 0.8 k/uL (1.0-4.8); Lymphocytes % (A) 6 %; MCH 30.5 pg (25.0-35.0); MCHC 32.7 g/dL (31.0-37.0); MCV 93.3 fL (80.0-100.0); Mean Platelet Volume 6.8; Monocytes # (A) 0.6 k/uL (0-1.0); Monocytes % (A) 5 %; Neutrophils # (A) 10.3 k/uL (1.3-7.7); Neutrophils % (A) 83 %; RBC 4.02 m/uL (4.30-5.90); RDW 13.8 % (11.5-15.5); WBC 12.4 k/uL (3.8-10.6); WBC (Perox) 13.23
[2016-06-23 06:29] LABS: Calcium 9.4 mg/dL (8.4-10.2); INR 2.4 (<1.1); Magnesium 1.9 mg/dL (1.6-2.3); Potassium 4.1 mmol/L (3.5-5.1); Prothrombin Time 23.3 sec (9.0-12.0); Total Bilirubin 0.8 mg/dL (0.2-1.3); Total Protein 5.8 g/dL (6.3-8.2)
[2016-06-23] MEDS: IPRATROPIUM-ALBUTEROL 3 ML NEB INHALATION PRN (07:32)
[2016-06-23] MEDS: SYMBICORT 80-4.5 MCG INHALER INHALATION SCH ×2 (07:32→19:45)
[2016-06-23] MEDS ORDERED: IPRATROPIUM-ALBUTEROL 3 ML NEB INHALATION PRN (07:39)
[2016-06-23] MEDS: IPRATROPIUM-ALBUTEROL 3 ML NEB INHALATION SCH ×4 (07:47→19:45)
--- NOTE | 2016-06-23 07:54 | P.PN ---
Progress Note - Text The patient is an 85-year-old gentleman who I am covering for Dr. Jatinder Collier. Patient admitted 3 days previous with exacerbation of COPD and pneumonia. Other comorbidities include atrial fibrillation, type 2 diabetes and on this admission is found to have elevated liver function tests. This morning patient states he is a bit more short of breath. Did not rest well. Denies any nausea vomiting or chest pain or abdominal pain. Vital signs reveal temperature 90.8 with a pulse of 104 and irregular. Respirations are 26 and blood pressure is 129/63 he is 95% saturated on 3 L nasal cannula. He does have some diffuse rhonchi on respiratory exam. Heart tones are somewhat irregular and distant. He does have grade 1 edema present. Laboratory values: White count is 12.4 with a hemoglobin of 12.3 and a platelet count of 301. INR is 2.4 this morning. Coumadin has been held. Sodium is 129 with a potassium of 4.1. BUN is 53 with creatinine 1.53 giving him a GFR of 43. Blood sugars 136. Liver function tests still elevated with AST of 182 ALT of 141 and alk phos of 162. Bilirubin is normal at 0.8. Impressions and plans: Regarding respiratory status we will increase his respiratory treatments to 4 times a day and when necessary. Chest x-ray to be done. Corticosteroids have been added to his regime. Ultrasound of the abdomen has been ordered with attention to the biliary tree and pancreas. Continue to follow-up labs with liver function tests and INR.
[2016-06-23] MEDS: PSYLLIUM HUSK 100% 6 GM PACKET PO SCH (08:38)
[2016-06-23] MEDS: DILTIAZEM CD 180 MG CAP.ER.24H PO SCH (08:39)
[2016-06-23] MEDS: CHLORTHALIDONE 25 MG TAB PO SCH (08:39)
[2016-06-23] MEDS: ALLOPURINOL 100 MG TAB PO SCH (08:39)
[2016-06-23] MEDS: methylPREDNISolone SOD SUCCI 40 MG/ML 1 ML VIAL IV SCH ×2 (08:39→15:15)
[2016-06-23] MEDS: METOPROLOL SUCCINATE (ER) 50 MG TAB.ER.24H PO SCH ×2 (08:40→20:00)
[2016-06-23] MEDS: PIPERACILLIN-TAZOBACTAM 3.375 GM in DEXTROSE/WATER 1 50ML.BAG IVPB SCH ×2 (08:43→15:16)
[2016-06-23 11:33] LABS: Glucose,Whole Blood 164 mg/dL (75-99)
--- NOTE | 2016-06-23 11:53 | CDI ---
In responding to this query, please exercise your independent professional judgment. The [facility] Coding Staff and Clinical Documentation Specialists appreciate your assistance in clarifying documentation, maintaining compliance with coding guidelines, accurately documenting patients condition and capturing severity of illness. The fact that a question is asked does not imply that any particular answer is desired or expected. Communication forms are a method of clarifying documentation and are not made part of the Legal Health Record. Thank you in advance for your clarification. Last Revision, July 2015 Tyrell Hernandez [address] [facility] [place] [address] Documentation Clarification Form Date: 06/23/2016 11:45:00 AM From: Aiyana Hoyt, CCS, CCDS Admit Date: 06/20/2016 5:05:00 PM Patient Name: Aguila Wall Visit Number: [id number] Discharge Date: Dr. Ephraim Witt: CHF is documented in the EC note as an exacerbation. In the attending PN 06/21, CHF is documented as "the patient is having significant congestive heart failure symptoms". History/Risk Factors: CHF, COPD, DM, Chronic Atrial Fibrillation, former smoker. Clinical Indicators: VS/Pulse OX: HR 90s-103, PO 93 ra, 91 2Lnc BNP: 1700 Echocardiogram Results: EF50-55%, left ventricular systolic function low normal , mild-moderate pulmonary hypertension. Chest X Ray: New small right pleural effusion, prominent left basilar infiltrate and/or atelectasis. Treatment: po & IV Lasix, O2 2Lnc, Albuterol INH, IV Levaquin, IV Ativan, Insulin sc Consults: Cardiac rehab, Dietitian In your professional opinion, can you please clarify the acuity and type of CHF if known? Acute Chronic Acute on Chronic AND Systolic Diastolic Systolic and Diastolic Cor Pulmonale (Right Sided HF w/ Pulmonary HTN) Unable to determine Other, please specify If known, please specify if Heart Failure is due to: Hypertension Rheumatic Fever Please document in your progress notes and discharge summary in order to capture severity of illness and risk of mortality. Include clinical findings that support your diagnosis. FYI: Press F11 to launch patient chart. Place X here if this finding has no clinical significance, is not applicable or if you are not able to provide any additional documentation. Thank You. TAMI
--- NOTE | 2016-06-23 15:03 | XR ---
EXAMINATION TYPE: XR chest 2V DATE OF EXAM: 06/23/2016 2:09 PM COMPARISON: Prior chest x-ray June HISTORY: Pneumonia, cough TECHNIQUE: Frontal and lateral views of the chest are obtained on 3 images. FINDINGS: Similar findings. Retrocardiac density persists. There is patchy density at the right lung base. IMPRESSION: Findings suggest basilar pneumonia. There may be underlying COPD.
--- NOTE | 2016-06-23 16:17 | US ---
EXAMINATION TYPE: US abdomen limited DATE OF EXAM: 06/23/2016 3:58 PM COMPARISON: Prior CT abdomen pelvis 20 October 2014 CLINICAL HISTORY: elevated liver tests. EXAM MEASUREMENTS: Liver Length: 21.3 cm Gallbladder Wall: Surgically absent CBD: 0.5 cm Right Kidney: 9.8 x 4.1 x 5.4 cm TECHNOLOGIST IMPRESSION: Pancreas: Obscured by overlying midline bowel gas Liver: enlarged at 21.3cm, heterogeneous with multiple ill-defined lesions seen throughout with larg est measuring 5.6cm Gallbladder: Surgically absent Evidence for sonographic Dixon's sign: no CBD: visualized portions wnl, limited by overlying bowel gas Right Kidney: wnl There is no ascites. IMPRESSION: Findings suggestive of metastatic disease to the liver.
[2016-06-23 16:35] LABS: Glucose,Whole Blood 190 mg/dL (75-99)
[2016-06-23 20:24] LABS: Glucose,Whole Blood 241 mg/dL (75-99)
[2016-06-23] MEDS: INSULIN GLARGINE 100 UNIT/ML 10 ML VIAL SQ SCH (20:26)
[2016-06-24] MEDS: methylPREDNISolone SOD SUCCI 40 MG/ML 1 ML VIAL IV SCH ×3 (00:18→15:48)
[2016-06-24 05:51] LABS: Glucose,Whole Blood 152 mg/dL (75-99)
[2016-06-24] MEDS: INSULIN LISPRO (humaLOG) 300 UNIT/3 ML VIAL SQ SCH ×4 (06:00→20:56)
[2016-06-24 06:47] LABS: INR 2.2 (<1.1); Prothrombin Time 21.6 sec (9.0-12.0)
[2016-06-24 06:54] LABS: Calcium 9.4 mg/dL (8.4-10.2); Total Bilirubin 0.8 mg/dL (0.2-1.3)
[2016-06-24 06:55] LABS: Potassium 4.6 mmol/L (3.5-5.1)
--- NOTE | 2016-06-24 08:13 | P.PN ---
Progress Note - Text The patient is an 85-year-old gentleman of Dr. Crook for whom I am covering. Patient was admitted approximately 4 days ago with exacerbation of COPD with pneumonia. Patient has underlying atrial fibrillation along with a type 2 diabetes. The patient also has acute on chronic diastolic dysfunction. And was also found to have elevated liver function tests on admission that despite stopping his statins have not improved. In fact he had a ultrasound yesterday that showed significant lesions in the liver suggestive of underlying metastatic disease. Patient states his respiratory status is better today than yesterday as patient has been started on corticosteroids. He denies any chest pain. No nausea or vomiting or abdominal pain. Vital signs reveal temperature 98.7 with a pulse of 92 and respirations 20. Blood pressure is 125/71 and he is 93% saturated on 2-1/2 L nasal cannula. Head and neck exam unremarkable. Lungs still show some mild or rhonchi and high -pitched wheeze but much better than yesterday. Abdomen is nontender. No unusual edema. No neurological changes. Laboratory values INR is 2.2. Sodium 130 with a potassium of 4.6. BUN is 64 with creatinine 1.59 given him a GFR of 42. A blood sugar was 162 this morning on corticosteroids Liver function tests still elevated with an alk phos of 156 and elevated AST and ALT of 161 and 132 respectively. Albumin is 3.0. Bilirubin normal at 0.8. Once again ultrasound showed multiple ill-defined lesions suggestive of metastatic disease. Impressions and plans: Continue antibiotics along with corticosteroids and respiratory treatments to improve his pulmonary status. Discussed with patient and staff. We will ask gastroenterology to evaluate regarding the abnormal liver function tests and abnormal ultrasound.
[2016-06-24] MEDS: PSYLLIUM HUSK 100% 6 GM PACKET PO SCH (08:31)
[2016-06-24] MEDS: SYMBICORT 80-4.5 MCG INHALER INHALATION SCH ×2 (08:35→20:05)
[2016-06-24] MEDS: IPRATROPIUM-ALBUTEROL 3 ML NEB INHALATION SCH ×4 (08:36→20:05)
--- NOTE | 2016-06-24 09:03 | P.CONS ---
History of Present Illness - Reason for Consult Consult date: 06/24/16 elevated liver enzymes/mass Requesting physician: Ephraim Witt - History of Present Illness 85-year-old gentleman patient of Dr. Collier with a past medical history of benign lung nodule status post partial right lobectomy, COPD, chronic diarrhea, chronic kidney disease, squamous skin carcinoma, urinary retention, chronic atrial fibrillation with Coumadin monitoring, diabetes mellitus, and cholecystectomy. Patient presents with acute dyspnea exacerbated over the last 4-5 days. Consultation requested for elevated liver enzymes with ultrasound imaging suggestive of hepatomegaly 21.3 cm, metastatic disease to the liver with multiple ill-defined lesions seen throughout largest measuring 5.6 cm. Total bilirubin on admission 0.7. AST 161-207. ALT 132-171. Alkaline phosphatase 156-180. Upon review of medical records transaminases and alkaline phosphatase within normal limits November 2015. Hepatitis panel negative. No history of known liver problems or hepatitis. No history of alcoholism. Patient denies abdominal pain but reports looser bowel movements which has been chronic in nature but he noticed some to be more dark black like in color prior to admission. Hemoglobin 12.3. Admission INR 5.7 currently 2.2. D-dimer 2.86. Creatinine 1.5. Chest x-ray correlate for possible pneumonia. Colonoscopy October 2013 for diarrhea reported small adenoma sigmoid polyp, mild diverticulosis, and weak anal sphincter tone without evidence of colonic inflammation. Review of Systems Constitutional: Denies fever, chills, sweats, weight gain, or loss. HEENT: Negative for migraines, blurred vision or loss, earaches, drainage, tinnitus, oral mucosal lesions, dysphagia, or odynophagia. Cardiac: Atrial fibrillation Negative for chest pain, arrhythmias, or palpitation. Respiratory: COPD. Negative for shortness of breath, hemoptysis, cough, or sputum production. Gastrointestinal: See HPI for pertinent findings. Genitourinary: Urinary retention Negative for hematuria, urgency, frequency, polyuria, dysuria, or penile discharge. Musculoskeletal: Negative for muscle aches, swelling, arthritis, and arthralgias. Neurologic: Negative for stroke or TIA. Nephrology: Chronic kidney disease Endocrine: Diabetes mellitus Negative for thyroid problems. Skin: Skin carcinoma Negative for rash or itching. Psychiatric: anxiety All systems: negative (See HPI) Past Medical History Past Medical History: Atrial Fibrillation, Coronary Artery Disease (CAD), Cancer , Heart Failure, COPD, Diabetes Mellitus, Hyperlipidemia, Hypertension, Osteoarthritis (OA), Pneumonia Additional Past Medical History / Comment(s): Back pain with history of spinal stenosis"bulging disc" and significant radicular pains(pain clinic procedures done). Chronic renal failure with stage III Chronic Kidney disease, Skin ca, Home O2@ 2 liters n/c @ HS. Chronic henderson catheter for BPH pt stated it was just changed 06-02-16, ibs.cellulitis lt index finger,neuropathy in feet. had sores/ulcerations in mouth -had bx in past 2 weeks pt stated was neg. but now has intermittent burning sensation like pepper is on his tongue.problems with balance uses walker. History of Any Multi-Drug Resistant Organisms: Other MDRO Past Surgical History: Appendectomy, Cholecystectomy, Tonsillectomy Additional Past Surgical History / Comment(s): RIGHT LUNG TUMOR REMOVED ( hematoma) per patient., Vasectomy, Cataracts, PAIN CLINIC PROCEDURES, oral bx- neg Past Anesthesia/Blood Transfusion Reactions: No Reported Reaction Past Psychological History: Anxiety Additional Psychological History / Comment(s): pt served in [employer], worked at [employer]. pt lives with his , uses a walker when up. admits to falls from missing his chair and landing on floor. no current home care services. Smoking Status: Former smoker Past Alcohol Use History: Heavy Additional Past Alcohol Use History / Comment(s): started smoking at age 18- smoked 1-2 ppd quit 2003. pt stated when younger drank alot but quit 30 years ago Past Drug Use History: None Reported - Past Family History Father Family Medical History: Diabetes Mellitus Additional Family Medical History / Comment(s): at age 78- anuerysm Mother Family Medical History: CVA/TIA Additional Family Medical History / Comment(s): age 78- ?aneurysm Medications and Allergies Home Medications Medication Instructions Recorded Confirmed Type Fluticasone/Salmeterol [Advair 1 puff INHALATION RT-BID 01/16/14 06/20/16 History 100-50 Diskus] Diltiazem HCl [Diltiazem 24Hr ER] 180 mg PO DAILY 06/12/14 06/20/16 History Ipratropium-Albuterol Nebulize 3 ml INHALATION RT-TID PRN 10/31/14 06/20/16 History [Duoneb 0.5 mg-3 mg/3 ml Soln] Digoxin [Lanoxin] 125 mcg PO Q48H 07/31/15 06/20/16 History ALPRAZolam [Xanax] 0.25 mg PO QID PRN 10/13/15 06/20/16 History Allopurinol [Zyloprim] 100 mg PO DAILY 10/13/15 06/20/16 History Warfarin [Coumadin] 2.5 mg PO SUMOWETHSA 11/11/15 06/20/16 History Warfarin [Coumadin] 5 mg PO TUFR 11/11/15 06/20/16 History Furosemide [Lasix] 20 mg PO TID 11/27/15 06/20/16 History Insulin Detemir [Levemir] See Protocol SQ HS 06/20/16 06/20/16 History Ackerly-3 Fatty Acids/Fish Oil [Fish 1 cap PO DAILY 06/20/16 06/20/16 History Oil 1,000 mg Softgel] Psyllium Husk 100% [Metamucil] 6 gm PO DAILY 06/20/16 06/20/16 History Simvastatin [Zocor] 10 mg PO Q48H 06/20/16 06/20/16 History Allergies Allergy/AdvReac Type Severity Reaction Status Date / Time Sulfa (Sulfonamide Allergy Unknown Unknown Verified 06/20/16 10:47 Antibiotics) Childhood benazepril Allergy tongue Verified 06/20/16 10:47 swelling Physical Exam Vitals: Vital Signs Temp Pulse Pulse Resp BP Pulse Ox 06/24/16 08:48 77 06/24/16 08:36 96 96 06/24/16 03:38 97 F L 92 20 125/71 93 L 06/24/16 00:00 97 F L 94 20 132/70 93 L 06/23/16 20:00 96.8 F L 105 H 20 138/69 95 06/23/16 19:45 94 06/23/16 15:15 96.9 F L 101 H 20 125/72 91 L 06/23/16 11:37 96 06/23/16 11:29 100 06/23/16 11:15 97.3 F L 95 20 129/72 93 L Intake and Output 06/23/16 06/24/16 06/24/16 22:59 06:59 14:59 Intake Total 240 0 Output Total 600 210 Balance -360 -210 0 Intake: Oral 240 0 Output: Urine 600 210 Other: Voiding Method Indwelling Catheter Indwelling Catheter # Voids 1 Weight 91.2 kg Results CBC & Chem 7: 06/23/16 06:03 06/24/16 06:20 Labs: Abnormal Lab Results - Last 24 Hours (Table) 06/23/16 06/23/16 06/23/16 Range/Units 11:16 16:27 20:22 PT (9.0-12.0) sec Sodium (137-145) mmol/L Chloride (98-107) mmol/L BUN (9-20) mg/dL Creatinine (0.66-1.25) mg/dL Glucose (74-99) mg/dL POC Glucose (mg/dL) 164 H 190 H 241 H (75-99) mg/dL AST (17-59) U/L ALT (21-72) U/L Alkaline Phosphatase (38-126) U/L Total Protein (6.3-8.2) g/dL Albumin (3.5-5.0) g/dL 06/24/16 06/24/16 06/24/16 Range/Units 05:48 06:20 06:20 PT 21.6 H (9.0-12.0) sec Sodium 130 L (137-145) mmol/L Chloride 90 L (98-107) mmol/L BUN 64 H (9-20) mg/dL Creatinine 1.59 H (0.66-1.25) mg/dL Glucose 162 H (74-99) mg/dL POC Glucose (mg/dL) 152 H (75-99) mg/dL AST 161 H (17-59) U/L ALT 132 H (21-72) U/L Alkaline Phosphatase 156 H (38-126) U/L Total Protein 6.0 L (6.3-8.2) g/dL Albumin 3.0 L (3.5-5.0) g/dL US - abdomen: report reviewed (Reviewed by Dr. Tejeda) Assessment and Plan (1) Elevated liver enzymes Narrative/Plan: 85-year-old gentleman presents with acute dyspnea and transaminitis. Ultrasound imaging reported hepatomegaly with multiple liver masses suspicious for metastatic disease. Additionally patient reports acute on chronic diarrhea dark -black colored bowel movements possible GI bleeding. History of atrial fibrillation with Coumadin monitoring INR presently 2.2. Status: Acute (2) Liver masses Status: Acute Plan: 1. AFP/CEA. 2. CT Chest/Abd/pelvis. 3. Hemoccult stool testing. 4. Anticoagulation on hold. Continue to monitor CBC. Further recommendations upon review of CT imaging possible liver biopsy. 5. Case discussed with Dr. Witt. Will follow closely with you. Thank you for this kind referral and the opportunity to participate in the care of your patient. This consultation was discussed with Dr. Tejeda. The impression and plan of care have been directed as dictated.
[2016-06-24] MEDS: ALLOPURINOL 100 MG TAB PO SCH (09:14)
[2016-06-24] MEDS: CHLORTHALIDONE 25 MG TAB PO SCH (09:14)
[2016-06-24] MEDS: IOHEXOL 350 MG/ML 25 ML BOTTLE (ORAL USE) PO PRN ×2 (09:15→10:19)
[2016-06-24] MEDS: DILTIAZEM CD 180 MG CAP.ER.24H PO SCH (09:15)
[2016-06-24] MEDS: METOPROLOL SUCCINATE (ER) 50 MG TAB.ER.24H PO SCH ×2 (09:15→20:56)
[2016-06-24] MEDS: PIPERACILLIN-TAZOBACTAM 3.375 GM in DEXTROSE/WATER 1 50ML.BAG IVPB SCH ×3 (09:18→15:51)
[2016-06-24 11:37] LABS: Glucose,Whole Blood 270 mg/dL (75-99)
--- NOTE | 2016-06-24 11:46 | CT ---
EXAMINATION TYPE: CT ChestAbdPelvis wo con DATE OF EXAM: 06/24/2016 11:05 AM COMPARISON: CT abdomen and pelvis 10/20/2014 and ultrasound 06/23/2016. HISTORY: 85-year-old male with liver mass, SOB TECHNIQUE: Contiguous axial scanning of the chest, abdomen, and pelvis without IV contrast. Coronal a nd sagittal reconstructions performed. CT DLP: 1419.3 mGycm Automated exposure control for dose reduction was used. FINDINGS: CHEST: Heart is normal size without pericardial effusion. Coronary vessel calcifications are present and are remarkable for coronary artery disease. [id number] atherosclerotic calcifications throughout the aorta with ectasia of the upper descen ding thoracic aorta at 3.0 cm. There is also large caliber of the main right and left pulmonary arteries at 3.0 and 2.7 cm, respecti vely, suggesting underlying pulmonary arterial hypertension. Mild to moderate bilateral gynecomastia. There is mediastinal lymphadenopathy measuring up to 2.6 cm upper right paraesophageal, 1.9 cm precar inal, 3.9 cm subcarinal, and probable left infrahilar lymphadenopathy and/or mass which attenuates th e left lower lobe bronchus. Extensive consolidation and/or mass is present throughout the basilar lef t lower lobe weight small to moderate-sized pleural effusion. Additional pulmonary nodules are present in the right base measuring up to 1.9 cm. Some reticular [place] at the right base is probably in part chronic from scarring and fibrosis. ABDOMEN: Numerous hypodense lesions throughout the liver with trace perihepatic ascites. Cholecystectomy clips are present. There is some 1.4 cm soft tissue nodularity in the upper left para-aortic retroperitoneum. Adrenal glands, kidneys, spleen, atrophic pancreas show no gross abnormality on noncontrast CT. Mild to moderate atherosclerotic calcifications within the abdominal aorta and iliac arteries with fu siform ectasia infrarenal abdominal aorta 2.7 cm. 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 No dilated small bowel or free air. Mild stool burden without pericolonic inflammatory change. PELVIS: Circumferential bladder wall thickening with Cornejo catheter in place. Intraluminal bladder air likely relating to instrumentation. Prostatomegaly at 5.4 cm wide. No abnormal fluid collection in the pelv is. BONES: Mild degenerative changes of the hips. Additional degenerative changes throughout the lumbar spine li ángela with a spinal canal stenosis at L4-L5. Endplate spondylosis midthoracic spine. There is some sub tle bony irregularity involving the right lateral fifth rib. Otherwise, no osseous destructive proces s. IMPRESSION: 1. METASTATIC DISEASE POSSIBLY FROM A LUNG PRIMARY GIVEN MASSLIKE CONSOLIDATION AT THE LEFT HILUM/INF RAHILAR REGION WITH NARROWING OF THE LEFT LOWER LOBE BRONCHUS. THERE IS EXTENSIVE CONSOLIDATION THROU GHOUT THE BASILAR LEFT LOWER LOBE WHICH COULD BE A COMBINATION OF MASS, ATELECTASIS, AND/OR POSTOBSTR UCTIVE PNEUMONITIS. [id number] LEFT PLEURAL EFFUSION. 2. METASTATIC DISEASE CHARACTERIZED BY MEDIASTINAL LYMPHADENOPATHY MEASURING UP TO 3.9 CM. THERE ARE RIGHT BASILAR PULMONARY NODULES MEASURING UP TO 1.9 CM WHICH ARE SUSPICIOUS, DIFFUSE METASTATIC DISEA SE INVOLVING THE LIVER AND POSSIBLE METASTATIC UPPER LEFT PARA-AORTIC LYMPHADENOPATHY MEASURING 1.4 C M. 3. PULMONARY ARTERIAL HYPERTENSION, CIRCUMFERENTIAL BLADDER WALL THICKENING WHICH COULD REFLECT CYSTI TIS OR BLADDER WALL HYPERTROPHY, PROSTATOMEGALY (5.4 CM WIDE), AND L4-L5 SPINAL CANAL STENOSIS.
[2016-06-24 16:40] LABS: Glucose,Whole Blood 182 mg/dL (75-99)
[2016-06-24] MEDS: DIGOXIN 125 MCG TAB PO SCH ×2 (18:12→18:32)
[2016-06-24 20:24] LABS: Glucose,Whole Blood 278 mg/dL (75-99)
[2016-06-24] MEDS: INSULIN GLARGINE 100 UNIT/ML 10 ML VIAL SQ SCH (20:56)
[2016-06-24] MEDS: ALPRAZolam 0.25 MG TAB PO PRN (20:58)
[2016-06-25] MEDS: methylPREDNISolone SOD SUCCI 40 MG/ML 1 ML VIAL IV SCH (00:14)
[2016-06-25] MEDS: PIPERACILLIN-TAZOBACTAM 3.375 GM in DEXTROSE/WATER 1 50ML.BAG IVPB SCH ×4 (00:14→23:41)
[2016-06-25] MEDS: INSULIN LISPRO (humaLOG) 300 UNIT/3 ML VIAL SQ SCH ×4 (06:24→22:19)
[2016-06-25 06:28] LABS: Glucose,Whole Blood 129 mg/dL (75-99)
[2016-06-25 06:36] LABS: Calcium 9.4 mg/dL (8.4-10.2); Potassium 4.4 mmol/L (3.5-5.1)
[2016-06-25 06:38] LABS: Prothrombin Time 19.3 sec (9.0-12.0)
[2016-06-25 06:53] LABS: CH 31.5; HDW 2.65; HGB 12.4 gm/dL (13.0-17.5); MCH 30.3 pg (25.0-35.0); MCHC 32.5 g/dL (31.0-37.0); MCV 93.1 fL (80.0-100.0); Mean Platelet Volume 7.8; RBC 4.08 m/uL (4.30-5.90); RDW 14.1 % (11.5-15.5)
[2016-06-25] MEDS ORDERED: PHYTONADIONE ORAL 5 MG/5 ML ORAL.SYRG PO STA (08:02)
--- NOTE | 2016-06-25 08:17 | P.PN ---
Progress Note - Text The patient is an 85-year-old gentleman of Dr. Crook for whom I am covering. Patient was admitted approximately 5 days ago with exacerbation of COPD and pneumonia. The patient has had a history of atrial fibrillation along with type 2 diabetes and acute on chronic diastolic congestive heart failure. On admission his liver function tests were elevated and despite stopping his statins the liver function tests did not improve. Patient has had imaging studies with an ultrasound and CAT scan revealing a suspicious area in the lung and possible metastatic disease to the liver. Overall patient's respiratory status appears to be improving on corticosteroids and respiratory treatments. He is generally weak. He does not complain of any nausea or vomiting or abdominal pain this morning. Vital signs reveal temperature of 96.8 with a pulse of 90 and respirations 20. Blood pressure is 143/72 and he is 94% saturated on 2 L nasal cannula. Head and neck exam unremarkable. Lungs to reveals some scattered rhonchi but generally remained fairly clear. Heart tones are distant with a controlled rate. Abdomen is obese but nontender. Patient has some grade 1 pedal edema. Generalized medical weakness but no focal deficits at this time. Laboratory values: White count is elevated at 18 but he is on prednisone. Hemoglobin is 12.4 and platelet count is 350. INR this morning is 2.0. Coumadin has been held for several days. Sodium is 130 with a potassium 4.4. BUN has risen to 74 and creatinine is 1.5 to given him a GFR of 44. Blood sugar is 126. CAT scan See report but does appear to show a suspicious lesion in the left lower lobe bronchus with the mass at or consolidation and moderate pleural effusion. Other pulmonary nodules were present and once again mediastinal adenopathy is present and suspicious diffuse metastatic liver disease also seen. Impressions and plans: Overall this gentleman who presented with exacerbation of COPD and pneumonia who had initial elevated liver function tests appears that he may have an underlying malignancy likely pulmonary in origin with metastatic disease. Gastroenterology is on the case. We will ask pulmonary medicine to evaluate. INR is 2.0. We will give him 1 dose of vitamin K today in case any further invasive testing is needed in the near future. Also have stopped his hygroton in light of elevation of his BUN. Discussed in generalities with the patient this morning regarding need for further evaluation based on the imaging studies.
--- NOTE | 2016-06-25 09:06 | P.PN ---
Subjective Principal diagnosis: liver mass 85-year-old gentleman admitted with dyspnea with radiographic imaging reporting liver masses with elevated liver enzymes. Computed tomography scan chest abdomen and pelvis reported lung masses highly suspicious for underlying malignancy. This morning he is confused hallucinating. Family at bedside. Nurse reports no episodes of bloody bowel movements. Objective - Vital Signs Vital signs: Vital Signs Temp 96.8 F L 06/25/16 04:00 Pulse 90 06/25/16 04:00 Resp 20 06/25/16 04:00 BP 143/72 06/25/16 04:00 Pulse Ox 94 L 06/25/16 04:00 Intake & Output 06/24/16 06/25/16 06/25/16 18:59 06:59 18:59 Intake Total 350 50 Output Total 900 Balance 350 -850 Weight 92.1 kg Intake: IV 50 50 Piperacillin-Tazobactam 3 50 50 .375 gm In Dextrose/Water 1 50ml.bag @ 12.5 mls/hr IVPB Q8HR [facility] Rx#: [id number] Oral 300 Output: Urine 900 Other: Voiding Method Indwelling Catheter Indwelling Catheter - Exam General appearance: The patient is alert, confused, hallucinating. HET: Head is normocephalic and atraumatic. Pupils are equal and reactive. Oropharynx is clear without lesions. Neck: Supple without lymphadenopathy. Trachea midline. Heart: S1 S2. Lungs: No crackles or wheezes are heard. Diminished in bases bilaterally Abdomen: Soft, nontender, nondistended with bowel sounds. No peritoneal signs. No palpable organomegaly or masses. Extremities: Normal skin color and turgor. No cyanosis, rash, ulceration, clubbing, or edema. Radial and pedal pulses are 2/4 bilaterally. Cornejo with clear yellow urine. Neurological: No focal deficits. Strength and sensation are grossly intact. - Labs CBC & Chem 7: 06/25/16 05:46 06/25/16 05:46 Labs: Abnormal Lab Results - Last 24 Hours (Table) 06/24/16 06/24/16 06/24/16 Range/Units 06:20 11:35 16:38 WBC (3.8-10.6) k/uL RBC (4.30-5.90) m/uL Hgb (13.0-17.5) gm/dL Hct (39.0-53.0) % PT (9.0-12.0) sec Sodium (137-145) mmol/L Chloride (98-107) mmol/L Carbon Dioxide (22-30) mmol/L BUN (9-20) mg/dL Creatinine (0.66-1.25) mg/dL Glucose (74-99) mg/dL POC Glucose (mg/dL) 270 H 182 H (75-99) mg/dL Carcinoembryonic Ag 5.3 H (0.0-5.0) ng/mL 06/24/16 06/25/16 06/25/16 Range/Units 20:20 05:46 05:46 WBC 18.0 H (3.8-10.6) k/uL RBC 4.08 L (4.30-5.90) m/uL Hgb 12.4 L (13.0-17.5) gm/dL Hct 38.0 L (39.0-53.0) % PT 19.3 H (9.0-12.0) sec Sodium (137-145) mmol/L Chloride (98-107) mmol/L Carbon Dioxide (22-30) mmol/L BUN (9-20) mg/dL Creatinine (0.66-1.25) mg/dL Glucose (74-99) mg/dL POC Glucose (mg/dL) 278 H (75-99) mg/dL Carcinoembryonic Ag (0.0-5.0) ng/mL 06/25/16 06/25/16 Range/Units 05:46 06:22 WBC (3.8-10.6) k/uL RBC (4.30-5.90) m/uL Hgb (13.0-17.5) gm/dL Hct (39.0-53.0) % PT (9.0-12.0) sec Sodium 130 L (137-145) mmol/L Chloride 87 L (98-107) mmol/L Carbon Dioxide 31 H (22-30) mmol/L BUN 74 H (9-20) mg/dL Creatinine 1.52 H (0.66-1.25) mg/dL Glucose 126 H (74-99) mg/dL POC Glucose (mg/dL) 129 H (75-99) mg/dL Carcinoembryonic Ag (0.0-5.0) ng/mL Assessment and Plan (1) Elevated liver enzymes Narrative/Plan: 85-year-old gentleman presents with acute dyspnea and transaminitis. Ultrasound imaging reported hepatomegaly with multiple liver masses suspicious for metastatic disease. CT chest abdomen and pelvis reported lung mass highly suspicious for underlying malignancy. History of atrial fibrillation with Coumadin monitoring INR presently 2.0. Status: Acute (2) Liver masses Status: Acute (3) Lung mass Status: Acute Plan: 1. Pulmonology consultation. Dr. Tejeda recommends oncology evaluation. Tissue biopsy to be determined by consultative services. 2. Continue supportive measures. Assessment and plan of care discussed with Dr. Tejeda.
[2016-06-25] MEDS: ALLOPURINOL 100 MG TAB PO SCH (09:16)
[2016-06-25] MEDS: DILTIAZEM CD 180 MG CAP.ER.24H PO SCH (09:16)
[2016-06-25] MEDS: METOPROLOL SUCCINATE (ER) 50 MG TAB.ER.24H PO SCH ×2 (09:16→21:08)
[2016-06-25] MEDS: IPRATROPIUM-ALBUTEROL 3 ML NEB INHALATION SCH ×4 (09:37→19:43)
[2016-06-25] MEDS: SYMBICORT 80-4.5 MCG INHALER INHALATION SCH ×2 (09:37→19:43)
[2016-06-25] MEDS: PSYLLIUM HUSK 100% 6 GM PACKET PO SCH (10:18)
[2016-06-25] MEDS: predniSONE 20 MG TAB PO SCH (10:18)
[2016-06-25 11:22] LABS: Glucose,Whole Blood 146 mg/dL (75-99)
[2016-06-25] MEDS: NYSTATIN 100,000 UNIT/ML SUSP 500,000 UNIT/5 ML CUP PO SCH ×3 (13:14→21:09)
--- NOTE | 2016-06-25 16:27 | P.CNPUL ---
History of Present Illness Consult date: 06/25/16 Reason for consult: lung mass History of present illness: 85-year-old male patient was hospitalized on 06/20/2016 for worsening shortness of breath. The patient was also having some difficulties with hypoglycemia. The patient was diagnosed having a COPD exacerbation with suspected early pneumonia and he was admitted to the hospital to be treated for this problem. He was also noted to have elevated liver function test at the time of admission. Further investigation was done and this included a CAT scan of the chest abdomen and pelvis that was completed yesterday and the findings showed a extensive consolidation/mass in the left lower lobe area with a small left- sided pleural effusion and in addition there was scattered point nodules in the right lung base measuring 1.9 cm size and extensive mediastinal lymphadenopathy measuring up to 2.6 cm in size in the right paraesophageal area, 1.9 cm in the precarinal, 3.9 cm and the subcarinal and there was also probable left infrahilar lymphadenopathy in addition. The CAT scan of the abdomen also showed numerous hypodense lesions throughout the liver and some trace perihepatic ascites. This was consistent with metastatic disease probably of a lung primary and a pulmonary consultation for was requested for this regard. The patient wasn't anticoagulation regarding his chronic atrial fibrillation. He was placed off anticoagulants for now pending further biopsy. His INR currently is down to 2.0. No chest pain. No major swelling in lower extremities. No abdominal distention. His appetite is important is been losing weight in addition. Review of Systems 12 point review of system was done and the positive signs almost above history of present illness Past Medical History Past Medical History: Atrial Fibrillation, Coronary Artery Disease (CAD), Cancer , Heart Failure, COPD, Diabetes Mellitus, Hyperlipidemia, Hypertension, Osteoarthritis (OA), Pneumonia Additional Past Medical History / Comment(s): COPD, lung mass details discussed above, coronary artery disease, chronic atrial fibrillation, hypertension, diabetes mellitus, hyperlipidemia, running back pain related to spinal stenosis and lumbar disc disease, chronic radiculopathy, chronic stage III kidney failure , skin cancer resected, chronic hypoxic respiratory failure and the patient has been maintained on oxygen 2 L/m nasal cannula overnight, BPH and the patient had a Cornejo catheter this was changed on 06/02/2016, history of cellulitis, peripheral neuropathy involving the lower extremities, difficulty with gait and mobility and balance , oral ulcers that has been biopsied and no final pathology has been established and there is no history of any oral malignancy. History of Any Multi-Drug Resistant Organisms: Other MDRO Past Surgical History: Appendectomy, Cholecystectomy, Tonsillectomy Additional Past Surgical History / Comment(s): RIGHT LUNG TUMOR REMOVED ( hematoma) per patient., Vasectomy, Cataracts, PAIN CLINIC PROCEDURES, oral bx- neg Past Anesthesia/Blood Transfusion Reactions: No Reported Reaction Past Psychological History: Anxiety Additional Psychological History / Comment(s): pt served in [employer], worked at [employer]. pt lives with his , uses a walker when up. admits to falls from missing his chair and landing on floor. no current home care services. Smoking Status: Former smoker Past Alcohol Use History: Heavy Additional Past Alcohol Use History / Comment(s): started smoking at age 18- smoked 1-2 ppd quit 2003. pt stated when younger drank alot but quit 30 years ago Past Drug Use History: None Reported - Past Family History Father Family Medical History: Diabetes Mellitus Additional Family Medical History / Comment(s): at age 78- anuerysm Mother Family Medical History: CVA/TIA Additional Family Medical History / Comment(s): age 78- ?aneurysm Medications and Allergies Home Medications Medication Instructions Recorded Confirmed Type Fluticasone/Salmeterol [Advair 1 puff INHALATION RT-BID 01/16/14 06/20/16 History 100-50 Diskus] Diltiazem HCl [Diltiazem 24Hr ER] 180 mg PO DAILY 06/12/14 06/20/16 History Ipratropium-Albuterol Nebulize 3 ml INHALATION RT-TID PRN 10/31/14 06/20/16 History [Duoneb 0.5 mg-3 mg/3 ml Soln] Digoxin [Lanoxin] 125 mcg PO Q48H 07/31/15 06/20/16 History ALPRAZolam [Xanax] 0.25 mg PO QID PRN 10/13/15 06/20/16 History Allopurinol [Zyloprim] 100 mg PO DAILY 10/13/15 06/20/16 History Warfarin [Coumadin] 2.5 mg PO SUMOWETHSA 11/11/15 06/20/16 History Warfarin [Coumadin] 5 mg PO TUFR 11/11/15 06/20/16 History Furosemide [Lasix] 20 mg PO TID 11/27/15 06/20/16 History Insulin Detemir [Levemir] See Protocol SQ HS 06/20/16 06/20/16 History [place]-3 Fatty Acids/Fish Oil [Fish 1 cap PO DAILY 06/20/16 06/20/16 History Oil 1,000 mg Softgel] Psyllium Husk 100% [Metamucil] 6 gm PO DAILY 06/20/16 06/20/16 History Simvastatin [Zocor] 10 mg PO Q48H 06/20/16 06/20/16 History Allergies Allergy/AdvReac Type Severity Reaction Status Date / Time Sulfa (Sulfonamide Allergy Unknown Unknown Verified 06/20/16 10:47 Antibiotics) Childhood benazepril Allergy tongue Verified 06/20/16 10:47 swelling Physical Exam Vitals: Vital Signs Temp Pulse Pulse Resp BP BP Pulse Ox 06/25/16 15:34 98.1 F 110 H 22 132/68 94 L 06/25/16 13:45 96 06/25/16 13:35 94 06/25/16 11:30 96.4 F L 91 16 143/83 94 L 06/25/16 09:50 92 06/25/16 09:37 94 06/25/16 09:00 15 06/25/16 08:00 115 H 15 06/25/16 07:30 97 F L 115 H 15 134/79 94 L 06/25/16 04:00 96.8 F L 90 20 143/72 94 L 06/25/16 00:00 97 F L 92 20 133/70 96 06/24/16 20:16 84 06/24/16 20:05 84 06/24/16 20:00 96.8 F L 106 H 20 135/89 92 L Intake and Output 06/25/16 06/25/16 06/25/16 06:59 14:59 22:59 Intake Total 150 Output Total 900 1 Balance -900 149 Intake: IV 50 Piperacillin-Tazobactam 3 50 .375 gm In Dextrose/Water 1 50ml.bag @ 12.5 mls/hr IVPB Q8HR [facility] Rx#: [id number] Oral 100 Output: Urine 900 Stool 1 Other: Voiding Method Indwelling Catheter Indwelling Catheter Weight 92.1 kg Head exam was generally normal. There was no scleral icterus or corneal arcus. Mucous membranes were moist.Neck was supple and without jugular venous distension, thyromegaly, or carotid bruits. Carotids were easily palpable bilaterally. There was no adenopathy. Lung sounds are diminished bilaterally along with that there is some scattered expiratory wheezes throughout the lung melara. Breath sounds are markedly diminished in lung bases bilaterally. Heart sounds are irregular, positive S1-S2 and there is no significant murmurs appreciated.Abdominal exam revealed normal bowel sounds. The abdomen was soft, non-tender, and without masses, organomegaly, or appreciable enlargement of the abdominal aorta.Examination of the extremities revealed easily palpable radial, femoral and pedal pulses. There was no cyanosis, clubbing or edema. Results - Laboratory Findings CBC and BMP: 06/25/16 05:46 06/25/16 05:46 PT/INR, D-dimer PT 19.3 sec (9.0-12.0) H 06/25/16 05:46 INR 2.0 (<1.1) 06/25/16 05:46 D-Dimer 2.86 mg/L FEU (<0.60) H 06/20/16 09:21 Abnormal lab findings: Abnormal Labs 06/20/16 06/21/16 06/21/16 18:13 03:27 03:27 WBC RBC Hgb Hct Neutrophils # Lymphocytes # PT 52.1 H INR 5.2 H* Sodium 132 L Chloride 90 L Carbon Dioxide 32 H BUN 42 H Creatinine 1.41 H Glucose 50 L* POC Glucose (mg/dL) 57 L AST 202 H ALT 156 H Alkaline Phosphatase 169 H Total Protein 6.0 L Albumin 3.0 L Carcinoembryonic Ag 06/21/16 06/21/16 06/21/16 12:14 16:47 20:31 WBC RBC Hgb Hct Neutrophils # Lymphocytes # PT INR Sodium Chloride Carbon Dioxide BUN Creatinine Glucose POC Glucose (mg/dL) 100 H 164 H 281 H AST ALT Alkaline Phosphatase Total Protein Albumin Carcinoembryonic Ag 06/22/16 06/22/16 06/22/16 05:40 07:22 11:46 WBC RBC Hgb Hct Neutrophils # Lymphocytes # PT 34.1 H INR Sodium 131 L Chloride 90 L Carbon Dioxide BUN 53 H Creatinine 1.70 H Glucose POC Glucose (mg/dL) 178 H AST 169 H ALT 137 H Alkaline Phosphatase 152 H Total Protein 5.5 L Albumin 2.7 L Carcinoembryonic Ag 06/22/16 06/22/16 06/23/16 16:57 20:41 05:48 WBC RBC Hgb Hct Neutrophils # Lymphocytes # PT INR Sodium Chloride Carbon Dioxide BUN Creatinine Glucose POC Glucose (mg/dL) 255 H 121 H 132 H AST ALT Alkaline Phosphatase Total Protein Albumin Carcinoembryonic Ag 06/23/16 06/23/16 06/23/16 06:03 06:03 06:03 WBC 12.4 H RBC 4.02 L Hgb 12.3 L Hct 37.5 L Neutrophils # 10.3 H Lymphocytes # 0.8 L PT 23.3 H INR Sodium 129 L Chloride 89 L Carbon Dioxide BUN 53 H Creatinine 1.53 H Glucose 136 H POC Glucose (mg/dL) AST 182 H ALT 141 H Alkaline Phosphatase 162 H Total Protein 5.8 L Albumin 2.8 L Carcinoembryonic Ag 06/23/16 06/23/16 06/23/16 11:16 16:27 20:22 WBC RBC Hgb Hct Neutrophils # Lymphocytes # PT INR Sodium Chloride Carbon Dioxide BUN Creatinine Glucose POC Glucose (mg/dL) 164 H 190 H 241 H AST ALT Alkaline Phosphatase Total Protein Albumin Carcinoembryonic Ag 06/24/16 06/24/16 06/24/16 05:48 06:20 06:20 WBC RBC Hgb Hct Neutrophils # Lymphocytes # PT 21.6 H INR Sodium 130 L Chloride 90 L Carbon Dioxide BUN 64 H Creatinine 1.59 H Glucose 162 H POC Glucose (mg/dL) 152 H AST 161 H ALT 132 H Alkaline Phosphatase 156 H Total Protein 6.0 L Albumin 3.0 L Carcinoembryonic Ag 06/24/16 06/24/16 06/24/16 06:20 11:35 16:38 WBC RBC Hgb Hct Neutrophils # Lymphocytes # PT INR Sodium Chloride Carbon Dioxide BUN Creatinine Glucose POC Glucose (mg/dL) 270 H 182 H AST ALT Alkaline Phosphatase Total Protein Albumin Carcinoembryonic Ag 5.3 H 06/24/16 06/25/16 06/25/16 20:20 05:46 05:46 WBC 18.0 H RBC 4.08 L Hgb 12.4 L Hct 38.0 L Neutrophils # Lymphocytes # PT 19.3 H INR Sodium Chloride Carbon Dioxide BUN Creatinine Glucose POC Glucose (mg/dL) 278 H AST ALT Alkaline Phosphatase Total Protein Albumin Carcinoembryonic Ag 06/25/16 06/25/16 06/25/16 05:46 06:22 11:20 WBC RBC Hgb Hct Neutrophils # Lymphocytes # PT INR Sodium 130 L Chloride 87 L Carbon Dioxide 31 H BUN 74 H Creatinine 1.52 H Glucose 126 H POC Glucose (mg/dL) 129 H 146 H AST ALT Alkaline Phosphatase Total Protein Albumin Carcinoembryonic Ag - Diagnostic Findings Chest x-ray: image reviewed CT scan - chest: image reviewed Assessment and Plan Plan: Assessment 1 large left lower lobe lung mass/consolidation along with extensive mediastinal lymphadenopathy and a smaller pulmonary nodules in the right lower lobe base. These findings are very much consistent with metastatic lung cancer and that is also liver involvement with multiple hypodense lesions as evident on the CAT scan of the chest abdomen and pelvis. Further investigation will be needed 2 COPD 3 chronic atrial fibrillation and the patient has been on anticoagulants with warfarin and the PT/INR is therapeutic at this point and they Coumadin is been placed on hold 4 chronic renal failure with stage III kidney disease 5 peripheral neuropathy 6 difficulty with gait and mobility 7 chronic hypoxic respiratory failure maintained on oxygen at 2 L overnight 8 skin cancer, resected 9 corneal artery disease 11 diabetes mellitus 12 hyperlipidemia 13 hypertension 14 osteoarthritis 15 lumbar spinal stenosis with chronic back pain and radiculopathy 16 BPH 17 chronic oral ulceration Plan Discussed the findings with the patient and his family. The lung mass is very accessible for a bronchoscopic transbronchial needle aspirate. However, based on his multiple other comorbidities and borderline breathing status, I prefer proceeding with a fine-needle aspirate of the liver which is less complication for this patient. I'll discuss this with interventional radiology and if they' re agreeable we'll proceed with a fine-needle aspirate of the liver mass to establish a tissue diagnosis and stage the patient. Meanwhile, I was able to discuss the prognosis of the patient's family. Unfortunately his performance and functional status is poor and not a whole lot of treatment can be offered to him specially if a diagnosis of lung cancer is been established.
[2016-06-25 17:00] LABS: Glucose,Whole Blood 169 mg/dL (75-99)
[2016-06-25] MEDS: INSULIN GLARGINE 100 UNIT/ML 10 ML VIAL SQ SCH (21:08)
[2016-06-25] MEDS: ALPRAZolam 0.25 MG TAB PO PRN (21:09)
[2016-06-25 21:22] LABS: Glucose,Whole Blood 166 mg/dL (75-99)
--- NOTE | 2016-06-25 23:21 | P.CONS ---
History of Present Illness - Reason for Consult Consult date: 06/25/16 Lung and liver masses - History of Present Illness The pt is an 84 yr old WM, with multiple medical problems. He was admitted due to increased SOB over the past 4-5 days. He does have a h/o recurrent pneumonias ( left and right) in the summer of 2015. Imaging on CXR revealed a significant density in the LLL. His liver enzymes were noted to be elevated ( ALT , AST and Alk Phos) with bilirubin normal. He had a CT CAP which showed a large mass like density in the LLL, with surrounding small effusion, as well as multiple liver lesions, high suspcious for metastases. The consult was therefore placed for further evaluation. He denied any h/o cancer, other than non melanoma skin cancer. He did have a RLL lobectomy several years ago for a benign nodule. Review of Systems Constitutional: Reports poor appetite, Reports weakness Eyes: denies blurred vision, denies pain Ears: deny: decreased hearing, ear discharge, earache, tinnitus Ears, nose, mouth and throat: Reports mouth pain (ongoing soreness in mouth .Recent biopsy by [facility] surgery- negative) Cardiovascular: Reports irregular heart beat, Reports shortness of breath Respiratory: Reports cough with sputum, Reports dyspnea Gastrointestinal: Reports abdominal pain, Reports diarrhea Genitourinary: Reports as per HPI Musculoskeletal: Reports muscle weakness Integumentary: Denies pruritus, Denies rash Neurological: Reports memory loss (chronic, with acute exacerbations. No major change recently per family) Psychiatric: Reports difficulty concentrating, Reports memory loss Endocrine: Reports fatigue, Reports thyroid mass Hematologic/Lymphatic: Reports as per HPI Past Medical History Past Medical History: Atrial Fibrillation, Coronary Artery Disease (CAD), Cancer , Heart Failure, COPD, Diabetes Mellitus, Hyperlipidemia, Hypertension, Osteoarthritis (OA), Pneumonia Additional Past Medical History / Comment(s): Back pain with history of spinal stenosis"bulging disc" and significant radicular pains(pain clinic procedures done). Chronic renal failure with stage III Chronic Kidney disease, Skin ca, Home O2@ 2 liters n/c @ HS. Chronic henderson catheter for BPH pt stated it was just changed 06-02-16, ibs.cellulitis lt index finger,neuropathy in feet. had sores/ulcerations in mouth -had bx in past 2 weeks pt stated was neg. but now has intermittent burning sensation like pepper is on his tongue.problems with balance uses walker. History of Any Multi-Drug Resistant Organisms: Other MDRO Past Surgical History: Appendectomy, Cholecystectomy, Tonsillectomy Additional Past Surgical History / Comment(s): RIGHT LUNG TUMOR REMOVED ( hematoma) per patient., Vasectomy, Cataracts, PAIN CLINIC PROCEDURES, oral bx- neg Past Anesthesia/Blood Transfusion Reactions: No Reported Reaction Past Psychological History: Anxiety Additional Psychological History / Comment(s): pt served in [employer], worked at [employer]. pt lives with his , uses a walker when up. admits to falls from missing his chair and landing on floor. no current home care services. Smoking Status: Former smoker Past Alcohol Use History: Heavy Additional Past Alcohol Use History / Comment(s): started smoking at age 18- smoked 1-2 ppd quit 2003. pt stated when younger drank alot but quit 30 years ago Past Drug Use History: None Reported - Past Family History Father Family Medical History: Diabetes Mellitus Additional Family Medical History / Comment(s): at age 78- anuerysm Mother Family Medical History: CVA/TIA Additional Family Medical History / Comment(s): age 78- ?aneurysm Medications and Allergies Home Medications Medication Instructions Recorded Confirmed Type Fluticasone/Salmeterol [Advair 1 puff INHALATION RT-BID 01/16/14 06/20/16 History 100-50 Diskus] Diltiazem HCl [Diltiazem 24Hr ER] 180 mg PO DAILY 06/12/14 06/20/16 History Ipratropium-Albuterol Nebulize 3 ml INHALATION RT-TID PRN 10/31/14 06/20/16 History [Duoneb 0.5 mg-3 mg/3 ml Soln] Digoxin [Lanoxin] 125 mcg PO Q48H 07/31/15 06/20/16 History ALPRAZolam [Xanax] 0.25 mg PO QID PRN 10/13/15 06/20/16 History Allopurinol [Zyloprim] 100 mg PO DAILY 10/13/15 06/20/16 History Warfarin [Coumadin] 2.5 mg PO SUMOWETHSA 11/11/15 06/20/16 History Warfarin [Coumadin] 5 mg PO TUFR 11/11/15 06/20/16 History Furosemide [Lasix] 20 mg PO TID 11/27/15 06/20/16 History Insulin Detemir [Levemir] See Protocol SQ HS 06/20/16 06/20/16 History [place]-3 Fatty Acids/Fish Oil [Fish 1 cap PO DAILY 06/20/16 06/20/16 History Oil 1,000 mg Softgel] Psyllium Husk 100% [Metamucil] 6 gm PO DAILY 06/20/16 06/20/16 History Simvastatin [Zocor] 10 mg PO Q48H 06/20/16 06/20/16 History Allergies Allergy/AdvReac Type Severity Reaction Status Date / Time Sulfa (Sulfonamide Allergy Unknown Unknown Verified 06/20/16 10:47 Antibiotics) Childhood benazepril Allergy tongue Verified 06/20/16 10:47 swelling Physical Exam Vitals: Vital Signs Temp Pulse Pulse Resp BP Pulse Ox 06/25/16 11:30 96.4 F L 91 16 143/83 94 L 06/25/16 09:50 92 06/25/16 09:37 94 06/25/16 09:00 15 06/25/16 08:00 115 H 15 06/25/16 07:30 97 F L 115 H 15 134/79 94 L 06/25/16 04:00 96.8 F L 90 20 143/72 94 L 06/25/16 00:00 97 F L 92 20 133/70 96 06/24/16 20:16 84 06/24/16 20:05 84 06/24/16 20:00 96.8 F L 106 H 20 135/89 92 L 06/24/16 16:14 92 06/24/16 16:03 92 06/24/16 15:48 96.9 F L 82 20 132/88 92 L 06/24/16 13:05 96.9 F L 86 20 129/61 94 L Intake and Output 06/24/16 06/25/16 06/25/16 22:59 06:59 14:59 Intake Total 150 Output Total 900 Balance 150 -900 Intake: IV 50 Piperacillin-Tazobactam 3 50 .375 gm In Dextrose/Water 1 50ml.bag @ 12.5 mls/hr IVPB Q8HR [facility] Rx#: [id number] Oral 100 Output: Urine 900 Other: Voiding Method Indwelling Catheter Indwelling Catheter Indwelling Catheter Weight 92.1 kg - Constitutional General appearance: mild distress - EENT Eyes: EOMI, PERRLA ENT: hearing grossly normal, thrush - Neck Neck: no lymphadenopathy Thyroid: bilateral: normal size - Respiratory Respiratory: right: CTA, left: rhonchi (LLL) - Cardiovascular Rhythm: irregularly irregular Heart sounds: normal: S1, S2 - Gastrointestinal General gastrointestinal: hepatomegaly (3 fbcm), soft Localized gastrointestinal: tender: RUQ - Integumentary Integumentary: normal - Neurologic Neurologic: CNII-XII intact - Musculoskeletal Musculoskeletal: generalized weakness, strength equal bilaterally - Psychiatric Difficulty with accurate recall. Mildly confused Results CBC & Chem 7: 06/25/16 05:46 06/25/16 05:46 Labs: Abnormal Lab Results - Last 24 Hours (Table) 06/24/16 06/24/16 06/24/16 Range/Units 06:20 16:38 20:20 WBC (3.8-10.6) k/uL RBC (4.30-5.90) m/uL Hgb (13.0-17.5) gm/dL Hct (39.0-53.0) % PT (9.0-12.0) sec Sodium (137-145) mmol/L Chloride (98-107) mmol/L Carbon Dioxide (22-30) mmol/L BUN (9-20) mg/dL Creatinine (0.66-1.25) mg/dL Glucose (74-99) mg/dL POC Glucose (mg/dL) 182 H 278 H (75-99) mg/dL Carcinoembryonic Ag 5.3 H (0.0-5.0) ng/mL 06/25/16 06/25/16 06/25/16 Range/Units 05:46 05:46 05:46 WBC 18.0 H (3.8-10.6) k/uL RBC 4.08 L (4.30-5.90) m/uL Hgb 12.4 L (13.0-17.5) gm/dL Hct 38.0 L (39.0-53.0) % PT 19.3 H (9.0-12.0) sec Sodium 130 L (137-145) mmol/L Chloride 87 L (98-107) mmol/L Carbon Dioxide 31 H (22-30) mmol/L BUN 74 H (9-20) mg/dL Creatinine 1.52 H (0.66-1.25) mg/dL Glucose 126 H (74-99) mg/dL POC Glucose (mg/dL) (75-99) mg/dL Carcinoembryonic Ag (0.0-5.0) ng/mL 06/25/16 06/25/16 Range/Units 06:22 11:20 WBC (3.8-10.6) k/uL RBC (4.30-5.90) m/uL Hgb (13.0-17.5) gm/dL Hct (39.0-53.0) % PT (9.0-12.0) sec Sodium (137-145) mmol/L Chloride (98-107) mmol/L Carbon Dioxide (22-30) mmol/L BUN (9-20) mg/dL Creatinine (0.66-1.25) mg/dL Glucose (74-99) mg/dL POC Glucose (mg/dL) 129 H 146 H (75-99) mg/dL Carcinoembryonic Ag (0.0-5.0) ng/mL Chest x-ray: report reviewed CT scan - abdomen: report reviewed, image reviewed CT scan - chest: report reviewed, image reviewed CT scan - pelvis: report reviewed, image reviewed Assessment and Plan (1) Lung mass Narrative/Plan: The pt's CT CAP results and implications were discussed in detail with him, and his family. The clinicall picture is highly s/o a metastatic malignancy, with lung primary metastatic to liver the primary differential, based on the radiologic and clinical presentation. A tissue diagnosis is needed to confirm the same. It was discussed with the family that if this is confirmed, it would represent stage IV, incurable disease. Treatment options may be limited by his PS. They confirmed that they definitely wanted a diagnosis. - The options are liver biopsy vs lung. Pulmonary consultation is pending. If they feel that the pt needs a bronchoscopy to assess the airway, they can proceed with the same. Otherwise image guided biopsy of the liver or lung ( preferably a core) would be the other options Status: Acute (2) Liver masses Narrative/Plan: Based on the CT appearance they likely represent metastatic disease. Case d/w GI. These appear to be the cause for the liver enzyme elevation. At this time, further GI w/u is not indicated Status: Acute
[2016-06-26 06:09] LABS: Glucose,Whole Blood 65 mg/dL (75-99)
[2016-06-26] MEDS ORDERED: DEXTROSE 50%-WATER 50 ML SYRINGE IVP ONE (06:12)
[2016-06-26] MEDS: INSULIN LISPRO (humaLOG) 300 UNIT/3 ML VIAL SQ SCH ×4 (06:13→21:06)
[2016-06-26 06:44] LABS: Basophils % (A) 0 %; CH 30.7; CHCM 33.4; Eosinophils % (A) 0 %; HCT 40.8 % (39.0-53.0); HDW 2.64; HGB 13.3 gm/dL (13.0-17.5); Luc # (Auto) 0.49; Luc % (Auto) 2; Lymphocytes # (A) 1.1 k/uL (1.0-4.8); Lymphocytes % (A) 5 %; MCH 30.1 pg (25.0-35.0); MCHC 32.6 g/dL (31.0-37.0); MCV 92.2 fL (80.0-100.0); Monocytes # (A) 1.1 k/uL (0-1.0); Monocytes % (A) 5 %; Neutrophils # (A) 19.7 k/uL (1.3-7.7); Neutrophils % (A) 88 %; RBC 4.42 m/uL (4.30-5.90); RDW 14.2 % (11.5-15.5); WBC 22.4 k/uL (3.8-10.6); WBC (Perox) 22.33
[2016-06-26 06:47] LABS: Glucose,Whole Blood 118 mg/dL (75-99)
[2016-06-26 06:54] LABS: Calcium 9.8 mg/dL (8.4-10.2); Potassium 3.9 mmol/L (3.5-5.1); Total Bilirubin 0.9 mg/dL (0.2-1.3); Total Protein 6.2 g/dL (6.3-8.2)
[2016-06-26 06:58] LABS: INR 1.5 (<1.1); Prothrombin Time 14.7 sec (9.0-12.0)
--- NOTE | 2016-06-26 08:14 | P.PN ---
Progress Note - Text The patient is an 85-year-old gentleman who is a patient of Dr. Collier's for whom I am covering. Patient was admitted about 6 days ago with an exacerbation of COPD and pneumonia. Follow-up on elevated liver tests revealed what appeared to be metastatic disease and further CAT scan imaging has shown a left lower lobe mass which likely can be the primary. Patient has been seen by pulmonary medicine, gastroenterology, and oncology. Please refer to their notes. Patient states he is not having any pain. He denies any shortness of breath at rest. But he complains of marked fatigue. Vital signs reveal temperature of 96.8 with a pulse of 100 and slightly irregular. Patient does have atrial fib. Respirations are 18. Blood pressure 120/67 and he is 96% saturated on 2 L nasal cannula. Lungs do reveal diminished breath sounds on the left and slight wheeze on the right base. Heart tones are distant. Abdomen is obese but nontender. Grade 1 edema present. No focal neurological deficits. Laboratory values: White count is still elevated at 22,000 with a hemoglobin 13 and a platelet count of 383. INR is 1.5 this morning. Sodium is 133 with a potassium of 3.9. BUN is 76 with a creatinine 1.67. Blood sugar was 65 and 118 this morning. Liver function tests are elevated in fact AST is 213 ALT 159 and alk phos 164. Impressions and plans: Overall this gentleman with likely primary lung cancer with metastatic disease to the liver and mediastinum based on CAT scans. Interventional radiologist has been consulted for possible liver biopsy. This may confirm stage IV cancer. Other recommendations pending biopsy and further specialists opinion at that time. Prognosis would be very guarded most likely. Elevated white count may indicate continued postobstructive pneumonic process in the left lower lobe despite antibiotic treatment.
[2016-06-26] MEDS: IPRATROPIUM-ALBUTEROL 3 ML NEB INHALATION SCH ×4 (08:17→21:40)
[2016-06-26] MEDS: SYMBICORT 80-4.5 MCG INHALER INHALATION SCH ×2 (08:17→21:40)
[2016-06-26] MEDS: PSYLLIUM HUSK 100% 6 GM PACKET PO SCH (08:33)
[2016-06-26] MEDS: NYSTATIN 100,000 UNIT/ML SUSP 500,000 UNIT/5 ML CUP PO SCH ×4 (08:34→21:09)
[2016-06-26] MEDS: DILTIAZEM CD 180 MG CAP.ER.24H PO SCH (08:36)
[2016-06-26] MEDS: METOPROLOL SUCCINATE (ER) 50 MG TAB.ER.24H PO SCH ×2 (08:36→21:09)
[2016-06-26] MEDS: predniSONE 20 MG TAB PO SCH (08:36)
[2016-06-26] MEDS: PIPERACILLIN-TAZOBACTAM 3.375 GM in DEXTROSE/WATER 1 50ML.BAG IVPB SCH ×3 (08:36→23:16)
[2016-06-26] MEDS: ALLOPURINOL 100 MG TAB PO SCH (08:36)
--- NOTE | 2016-06-26 10:15 | P.PN ---
Subjective Principal diagnosis: liver mass 85-year-old gentleman admitted with dyspnea with radiographic imaging reporting liver masses with elevated liver enzymes. Computed tomography scan chest abdomen and pelvis reported lung masses highly suspicious for underlying malignancy. Confused. Liver biopsy scheduled today. Hepatitis panel negative. AFP normal. Objective - Vital Signs Vital signs: Vital Signs Temp 96.9 F L 06/26/16 08:00 Pulse 108 H 06/26/16 08:30 Resp 18 06/26/16 08:00 BP 135/65 06/26/16 08:00 Pulse Ox 96 06/26/16 03:12 Intake & Output 06/25/16 06/26/16 06/26/16 18:59 06:59 18:59 Intake Total 150 350 Output Total 1 1900 Balance 149 -1550 Weight 91.5 kg Intake: IV 50 50 Piperacillin-Tazobactam 3 50 50 .375 gm In Dextrose/Water 1 50ml.bag @ 12.5 mls/hr IVPB Q8HR [facility] Rx#: [id number] Oral 100 300 Output: Urine 1900 Stool 1 Other: Voiding Method Indwelling Catheter Indwelling Catheter Indwelling Catheter # Voids 1 - Exam General appearance: The patient is alert, confused, hallucinating. HET: Head is normocephalic and atraumatic. Pupils are equal and reactive. Oropharynx is clear without lesions. Neck: Supple without lymphadenopathy. Trachea midline. Heart: S1 S2. Lungs: No crackles or wheezes are heard. Diminished in bases bilaterally Abdomen: Soft, nontender, nondistended with bowel sounds. No peritoneal signs. No palpable organomegaly or masses. Extremities: Normal skin color and turgor. No cyanosis, rash, ulceration, clubbing, or edema. Radial and pedal pulses are 2/4 bilaterally. [place] with clear yellow urine. Neurological: No focal deficits. Strength and sensation are grossly intact. - Labs CBC & Chem 7: 06/26/16 06:07 06/26/16 06:07 Labs: Abnormal Lab Results - Last 24 Hours (Table) 06/25/16 06/25/16 06/25/16 Range/Units 11:20 16:40 21:19 WBC (3.8-10.6) k/uL Neutrophils # (1.3-7.7) k/uL Monocytes # (0-1.0) k/uL PT (9.0-12.0) sec Sodium (137-145) mmol/L Chloride (98-107) mmol/L BUN (9-20) mg/dL Creatinine (0.66-1.25) mg/dL Glucose (74-99) mg/dL POC Glucose (mg/dL) 146 H 169 H 166 H (75-99) mg/dL AST (17-59) U/L ALT (21-72) U/L Alkaline Phosphatase (38-126) U/L Total Protein (6.3-8.2) g/dL Albumin (3.5-5.0) g/dL 06/26/16 06/26/16 06/26/16 Range/Units 06:07 06:07 06:07 WBC 22.4 H (3.8-10.6) k/uL Neutrophils # 19.7 H (1.3-7.7) k/uL Monocytes # 1.1 H (0-1.0) k/uL PT 14.7 H (9.0-12.0) sec Sodium 133 L (137-145) mmol/L Chloride 92 L (98-107) mmol/L BUN 76 H (9-20) mg/dL Creatinine 1.67 H (0.66-1.25) mg/dL Glucose 51 L (74-99) mg/dL POC Glucose (mg/dL) (75-99) mg/dL AST 213 H (17-59) U/L ALT 159 H (21-72) U/L Alkaline Phosphatase 164 H (38-126) U/L Total Protein 6.2 L (6.3-8.2) g/dL Albumin 3.2 L (3.5-5.0) g/dL 06/26/16 06/26/16 Range/Units 06:08 06:38 WBC (3.8-10.6) k/uL Neutrophils # (1.3-7.7) k/uL Monocytes # (0-1.0) k/uL PT (9.0-12.0) sec Sodium (137-145) mmol/L Chloride (98-107) mmol/L BUN (9-20) mg/dL Creatinine (0.66-1.25) mg/dL Glucose (74-99) mg/dL POC Glucose (mg/dL) 65 L 118 H (75-99) mg/dL AST (17-59) U/L ALT (21-72) U/L Alkaline Phosphatase (38-126) U/L Total Protein (6.3-8.2) g/dL Albumin (3.5-5.0) g/dL Assessment and Plan (1) Elevated liver enzymes Narrative/Plan: 85-year-old gentleman presents with acute dyspnea and transaminitis. Ultrasound imaging reported hepatomegaly with multiple liver masses suspicious for metastatic disease. CT chest abdomen and pelvis reported lung mass highly suspicious for underlying malignancy. Elevated liver enzymes secondary to underlying malignancy. Status: Acute (2) Liver masses Status: Acute (3) Lung mass Status: Acute Plan: 1. Liver biopsy. 2. Continue supportive measures. Will follow as needed. Assessment and plan of care discussed with Dr. Tejeda.
[2016-06-26] MEDS ORDERED: HYDROmorphone 1 MG/ML 1 ML SYRINGE IVP STA (11:30)
[2016-06-26 12:21] LABS: Glucose,Whole Blood 63 mg/dL (75-99)
[2016-06-26 12:42] LABS: Glucose,Whole Blood 81 mg/dL (75-99)
[2016-06-26 13:58] VITALS: BMI 28.9
--- NOTE | 2016-06-26 14:34 | US ---
EXAMINATION TYPE: US biopsy liver DATE OF EXAM: 06/26/2016 12:05 PM HISTORY: Liver masses. FINDINGS: Maximal barrier technique was utilized. The skin overlying a suitable path to the patient' s mass in the left lobe of the liver was localized with ultrasound and the overlying skin prepped and draped. Ultrasound was utilized with sterile technique. Lidocaine was used for local anesthesia. A skin cookie was made with a scalpel. An 18-gauge needle was advanced under direct ultrasound guidanc e and core specimen obtained of the mass. Specimen submitted in formalin to Pathology. Following th e procedure, hemostasis achieved and the patient is discharged in stable condition without complicati on. Impression: status POST ULTRASOUND GUIDED CORE BIOPSY OF liver MASS, PATHOLOGY IS PENDING. THIS PROC EDURE IS PERFORMED BY THE UNDERSIGNED.
--- NOTE | 2016-06-26 16:31 | P.PN ---
Subjective 85-year-old male patient was hospitalized on 06/20/2016 for worsening shortness of breath. The patient was also having some difficulties with hypoglycemia. The patient was diagnosed having a COPD exacerbation with suspected early pneumonia and he was admitted to the hospital to be treated for this problem. He was also noted to have elevated liver function test at the time of admission. Further investigation was done and this included a CAT scan of the chest abdomen and pelvis that was completed yesterday and the findings showed a extensive consolidation/mass in the left lower lobe area with a small left- sided pleural effusion and in addition there was scattered point nodules in the right lung base measuring 1.9 cm size and extensive mediastinal lymphadenopathy measuring up to 2.6 cm in size in the right paraesophageal area, 1.9 cm in the precarinal, 3.9 cm and the subcarinal and there was also probable left infrahilar lymphadenopathy in addition. The CAT scan of the abdomen also showed numerous hypodense lesions throughout the liver and some trace perihepatic ascites. This was consistent with metastatic disease probably of a lung primary and a pulmonary consultation for was requested for this regard. The patient wasn't anticoagulation regarding his chronic atrial fibrillation. He was placed off anticoagulants for now pending further biopsy. His INR currently is down to 2.0. No chest pain. No major swelling in lower extremities. No abdominal distention. His appetite is important is been losing weight in addition. On 06/23/2016 the patient is being seen in follow-up. His coagulopathy has been reversed his INR is down to 1.5. The patient will not be scheduled for bronchoscopy. I discussed the case with interventional radiologist and the liver lesions are very much abdomen for percutaneous biopsy. Based on that, and based on the patient's advanced comorbidities, I opted to proceed with a fine-needle aspirate which could be essentially diagnostic and will staged the patient same time. Objective - Vital Signs Vital signs: Vital Signs Temp 96.9 F L 06/26/16 08:00 Pulse 108 H 06/26/16 16:18 Resp 18 06/26/16 13:43 BP 128/67 06/26/16 13:43 Pulse Ox 96 06/26/16 13:43 Intake & Output 06/25/16 06/26/16 06/26/16 18:59 06:59 18:59 Intake Total 150 350 Output Total 1 1900 Balance 149 -1550 Weight 91.5 kg 91.5 kg Intake: IV 50 50 Piperacillin-Tazobactam 3 50 50 .375 gm In Dextrose/Water 1 50ml.bag @ 12.5 mls/hr IVPB Q8HR [facility] Rx#: [id number] Oral 100 300 Output: Urine 1900 Stool 1 Other: Voiding Method Indwelling Catheter Indwelling Catheter Indwelling Catheter # Voids 1 - Exam Head exam was generally normal. There was no scleral icterus or corneal arcus. Mucous membranes were moist.Neck was supple and without jugular venous distension, thyromegaly, or carotid bruits. Carotids were easily palpable bilaterally. There was no adenopathy. Lung sounds are diminished bilaterally along with that there is some scattered expiratory wheezes throughout the lung melara. Breath sounds are markedly diminished in lung bases bilaterally. Heart sounds are irregular, positive S1-S2 and there is no significant murmurs appreciated.Abdominal exam revealed normal bowel sounds. The abdomen was soft, non-tender, and without masses, organomegaly, or appreciable enlargement of the abdominal aorta.Examination of the extremities revealed easily palpable radial, femoral and pedal pulses. There was no cyanosis, clubbing or edema. - Labs CBC & Chem 7: 06/26/16 06:07 06/26/16 06:07 Labs: Abnormal Lab Results - Last 24 Hours (Table) 06/25/16 06/25/16 06/26/16 Range/Units 16:40 21:19 06:07 WBC 22.4 H (3.8-10.6) k/uL Neutrophils # 19.7 H (1.3-7.7) k/uL Monocytes # 1.1 H (0-1.0) k/uL PT (9.0-12.0) sec Sodium (137-145) mmol/L Chloride (98-107) mmol/L BUN (9-20) mg/dL Creatinine (0.66-1.25) mg/dL Glucose (74-99) mg/dL POC Glucose (mg/dL) 169 H 166 H (75-99) mg/dL AST (17-59) U/L ALT (21-72) U/L Alkaline Phosphatase (38-126) U/L Total Protein (6.3-8.2) g/dL Albumin (3.5-5.0) g/dL 0206/26/16 06/26/16 Range/Units 06:07 06:07 06:08 WBC (3.8-10.6) k/uL Neutrophils # (1.3-7.7) k/uL Monocytes # (0-1.0) k/uL PT 14.7 H (9.0-12.0) sec Sodium 133 L (137-145) mmol/L Chloride 92 L (98-107) mmol/L BUN 76 H (9-20) mg/dL Creatinine 1.67 H (0.66-1.25) mg/dL Glucose 51 L (74-99) mg/dL POC Glucose (mg/dL) 65 L (75-99) mg/dL AST 213 H (17-59) U/L ALT 159 H (21-72) U/L Alkaline Phosphatase 164 H (38-126) U/L Total Protein 6.2 L (6.3-8.2) g/dL Albumin 3.2 L (3.5-5.0) g/dL 06/26/16 06/26/16 Range/Units 06:38 12:12 WBC (3.8-10.6) k/uL Neutrophils # (1.3-7.7) k/uL Monocytes # (0-1.0) k/uL PT (9.0-12.0) sec Sodium (137-145) mmol/L Chloride (98-107) mmol/L BUN (9-20) mg/dL Creatinine (0.66-1.25) mg/dL Glucose (74-99) mg/dL POC Glucose (mg/dL) 118 H 63 L (75-99) mg/dL AST (17-59) U/L ALT (21-72) U/L Alkaline Phosphatase (38-126) U/L Total Protein (6.3-8.2) g/dL Albumin (3.5-5.0) g/dL Assessment and Plan Plan: Assessment 1 large left lower lobe lung mass/consolidation along with extensive mediastinal lymphadenopathy and a smaller pulmonary nodules in the right lower lobe base. These findings are very much consistent with metastatic lung cancer and that is also liver involvement with multiple hypodense lesions as evident on the CAT scan of the chest abdomen and pelvis. Further investigation will be needed 2 COPD 3 chronic atrial fibrillation and the patient has been on anticoagulants with warfarin and the PT/INR is reversed. 4 chronic renal failure with stage III kidney disease 5 peripheral neuropathy 6 difficulty with gait and mobility 7 chronic hypoxic respiratory failure maintained on oxygen at 2 L overnight 8 skin cancer, resected 9 corneal artery disease 11 diabetes mellitus 12 hyperlipidemia 13 hypertension 14 osteoarthritis 15 lumbar spinal stenosis with chronic back pain and radiculopathy 16 BPH 17 chronic oral ulceration Plan The patient's coagulopathy has been reversed. We have set up this patient to undergo a PT/INR on this interventional radiology. Bronchoscopy will be done if the FNA comes back negative.
[2016-06-26 16:42] LABS: Glucose,Whole Blood 95 mg/dL (75-99)
[2016-06-26] MEDS: DIGOXIN 125 MCG TAB PO SCH (17:06)
[2016-06-26 20:53] LABS: Glucose,Whole Blood 107 mg/dL (75-99)
[2016-06-26] MEDS: INSULIN GLARGINE 100 UNIT/ML 10 ML VIAL SQ SCH (21:10)
[2016-06-26] MEDS: ALPRAZolam 0.25 MG TAB PO PRN (21:10)
[2016-06-27 03:44] LABS: Glucose,Whole Blood 52 mg/dL (75-99)
[2016-06-27 04:02] LABS: Glucose,Whole Blood 76 mg/dL (75-99)
[2016-06-27] MEDS: ALPRAZolam 0.25 MG TAB PO PRN ×2 (04:52→22:02)
[2016-06-27 05:02] LABS: Glucose,Whole Blood 106 mg/dL (75-99)
[2016-06-27] MEDS: INSULIN LISPRO (humaLOG) 300 UNIT/3 ML VIAL SQ SCH ×4 (05:56→20:41)
[2016-06-27 06:04] LABS: Glucose,Whole Blood 104 mg/dL (75-99)
[2016-06-27] MEDS: PSYLLIUM HUSK 100% 6 GM PACKET PO SCH (07:31)
[2016-06-27] MEDS: ALLOPURINOL 100 MG TAB PO SCH (07:33)
[2016-06-27] MEDS: DILTIAZEM CD 180 MG CAP.ER.24H PO SCH (07:33)
[2016-06-27] MEDS: PIPERACILLIN-TAZOBACTAM 3.375 GM in DEXTROSE/WATER 1 50ML.BAG IVPB SCH ×3 (07:33→22:55)
[2016-06-27] MEDS: predniSONE 20 MG TAB PO SCH (07:33)
[2016-06-27] MEDS: NYSTATIN 100,000 UNIT/ML SUSP 500,000 UNIT/5 ML CUP PO SCH ×5 (07:33→20:45)
[2016-06-27] MEDS: METOPROLOL SUCCINATE (ER) 50 MG TAB.ER.24H PO SCH ×2 (07:33→20:41)
[2016-06-27] MEDS: IPRATROPIUM-ALBUTEROL 3 ML NEB INHALATION SCH ×4 (07:55→20:16)
[2016-06-27] MEDS: SYMBICORT 80-4.5 MCG INHALER INHALATION SCH ×2 (07:55→20:16)
--- NOTE | 2016-06-27 07:57 | P.PN ---
Progress Note - Text The patient is a 85-year-old gentleman a patient of Dr. Crook for whom I am covering. Patient was admitted 1 week previous with exacerbation of COPD and pneumonia. Patient has been found to have a left lower lobe lung mass and apparent metastatic disease to the liver. He has undergone fine-needle aspiration yesterday and results are pending. Today he continues to feel weak. Denies any chest pain or nausea and vomiting. He does seem to be alert and oriented this morning. Vital signs reveal temperature of 97 with a pulse of 101 and slightly irregular. Respirations are 20 and blood pressure 116/78. He is 94% saturated on 2 L nasal cannula. Lungs are diminished at bases. No definite wheezes this morning. Heart tones irregularly regular. Slightly tacky. Abdomen nontender. There is some pedal edema noted. No focal neurological deficits. Laboratory values: Blood sugar did go down as low as 52 during the night it is back up to 104 at this time. Impressions and plans: Discussed with patient today at bedside today and we are awaiting reports of his fine-needle aspiration and that pending those results we will discuss possible treatments or may need further evaluation if negative. He appears to understand. Further recommendations to follow. Notes from pulmonary medicine, gastroenterology and oncology noted. We have decreased his Lantus insulin from 15-10 units. Continue to do Accu- Cheks and monitor. We will decrease his prednisone from 40-30 mg daily. Overall prognosis still very guarded.
[2016-06-27] MEDS: HYDROcodone/APAP 5-325MG 1 EACH TAB PO PRN (10:37)
[2016-06-27] MEDS ORDERED: FUROSEMIDE 10 MG/ML 4 ML VIAL IV STA (11:39)
[2016-06-27 11:51] LABS: Glucose,Whole Blood 115 mg/dL (75-99)
--- NOTE | 2016-06-27 12:18 | XR ---
EXAMINATION TYPE: XR chest 1V DATE OF EXAM: 06/27/2016 11:52 AM COMPARISON: 06/23/2016 HISTORY: 85 year-old male shortness of breath TECHNIQUE: Single frontal view of the chest is obtained. FINDINGS: Significant rightward patient rotation alters the normal cardiomediastinal contours. Heart size difficult to determine accurately given this rotation. There is new moderate left pleural effusion. There is adjacent density and trace right pleural effusion also present. Old healed right-s ided rib fracture deformity. IMPRESSION: New moderate left pleural effusion with underlying atelectasis and infiltrate. Trace right pleural ef fusion.
--- NOTE | 2016-06-27 15:19 | P.PN ---
Subjective 85-year-old male patient was hospitalized on 06/20/2016 for worsening shortness of breath. The patient was also having some difficulties with hypoglycemia. The patient was diagnosed having a COPD exacerbation with suspected early pneumonia and he was admitted to the hospital to be treated for this problem. He was also noted to have elevated liver function test at the time of admission. Further investigation was done and this included a CAT scan of the chest abdomen and pelvis that was completed yesterday and the findings showed a extensive consolidation/mass in the left lower lobe area with a small left- sided pleural effusion and in addition there was scattered point nodules in the right lung base measuring 1.9 cm size and extensive mediastinal lymphadenopathy measuring up to 2.6 cm in size in the right paraesophageal area, 1.9 cm in the precarinal, 3.9 cm and the subcarinal and there was also probable left infrahilar lymphadenopathy in addition. The CAT scan of the abdomen also showed numerous hypodense lesions throughout the liver and some trace perihepatic ascites. This was consistent with metastatic disease probably of a lung primary and a pulmonary consultation for was requested for this regard. The patient wasn't anticoagulation regarding his chronic atrial fibrillation. He was placed off anticoagulants for now pending further biopsy. His INR currently is down to 2.0. No chest pain. No major swelling in lower extremities. No abdominal distention. His appetite is important is been losing weight in addition. On 06/26/2016 the patient is being seen in follow-up. His coagulopathy has been reversed his INR is down to 1.5. The patient will not be scheduled for bronchoscopy. I discussed the case with interventional radiologist and the liver lesions are very much abdomen for percutaneous biopsy. Based on that, and based on the patient's advanced comorbidities, I opted to proceed with a fine-needle aspirate which could be essentially diagnostic and will staged the patient same time. On 06/27/2016 the patient is stable. He underwent his fine-needle aspirate of the liver lesions and the pathologist still pending for now. There is suspicion for a neuroendocrine tumor. Meanwhile, the patient is still having some increased sputum production and a follow-up chest x-ray was done today and showed a new moderate-sized left-sided pleural effusion with underlying atelectasis and trace right-sided pleural effusion. I have a suspicion that we are dealing with a combination of a mass/consolidation/atelectasis along with an effusion in the left lung base as evident on the previous CAT scan of the chest. Thoracentesis may yield some limited amount of fluid from the left lung without causing major symptomatic improvement. Unfortunately the prognosis poor based on the findings. Objective - Vital Signs Vital signs: Vital Signs Temp 97.5 F L 06/27/16 11:58 Pulse 88 06/27/16 11:58 Resp 22 06/27/16 11:58 BP 130/62 06/27/16 11:58 Pulse Ox 95 06/27/16 11:58 Intake & Output 06/26/16 06/27/16 06/27/16 18:59 06:59 18:59 Intake Total 100 400 180 Output Total 550 425 Balance -450 -25 180 Weight 91.5 kg 90.3 kg Intake: IV 50 Piperacillin-Tazobactam 3 50 .375 gm In Dextrose/Water 1 50ml.bag @ 12.5 mls/hr IVPB Q8HR [facility] Rx#: [id number] Oral 100 350 180 Output: Urine 550 425 Other: Voiding Method Indwelling Catheter Indwelling Catheter Indwelling Catheter # Bowel Movements 1 - Exam Head exam was generally normal. There was no scleral icterus or corneal arcus. Mucous membranes were moist.Neck was supple and without jugular venous distension, thyromegaly, or carotid bruits. Carotids were easily palpable bilaterally. There was no adenopathy. Lung sounds are diminished bilaterally along with that there is some scattered expiratory wheezes throughout the lung melara. Breath sounds are markedly diminished in lung bases bilaterally. Heart sounds are irregular, positive S1-S2 and there is no significant murmurs appreciated.Abdominal exam revealed normal bowel sounds. The abdomen was soft, non-tender, and without masses, organomegaly, or appreciable enlargement of the abdominal aorta.Examination of the extremities revealed easily palpable radial, femoral and pedal pulses. There was no cyanosis, clubbing or edema. - Labs CBC & Chem 7: 06/26/16 06:07 06/26/16 06:07 Labs: Abnormal Lab Results - Last 24 Hours (Table) 06/26/16 06/27/16 06/27/16 Range/Units 20:51 03:36 05:01 POC Glucose (mg/dL) 107 H 52 L 106 H (75-99) mg/dL 02/24/17 02/24/17 Range/Units 06:00 11:41 POC Glucose (mg/dL) 104 H 115 H (75-99) mg/dL Assessment and Plan Plan: Assessment 1 large left lower lobe lung mass/consolidation along with extensive mediastinal lymphadenopathy and a smaller pulmonary nodules in the right lower lobe base. These findings are very much consistent with metastatic lung cancer and that is also liver involvement with multiple hypodense lesions as evident on the CAT scan of the chest abdomen and pelvis. Further investigation will be needed On 06/27/2016, the patient underwent a fine-needle aspirate of a liver lesion and the pulmonary findings are consistent with neuroendocrine tumor, metastatic , and the patient is still awaiting the final pathology report. Meanwhile, there has been further opacification of left lung base which is probably a combination of consolidation/mass along with effusion. 2 COPD 3 chronic atrial fibrillation and the patient has been on anticoagulants with warfarin and the PT/INR is reversed. The patient is currently on no anticoagulants for now. 4 chronic renal failure with stage III kidney disease 5 peripheral neuropathy 6 difficulty with gait and mobility 7 chronic hypoxic respiratory failure maintained on oxygen at 2 L overnight 8 skin cancer, resected 9 corneal artery disease 11 diabetes mellitus 12 hyperlipidemia 13 hypertension 14 osteoarthritis 15 lumbar spinal stenosis with chronic back pain and radiculopathy 16 BPH 17 chronic oral ulceration 18 evolving leukocytosis, rule out development of a left lower lobe postobstructive pneumonia Plan Awaiting final path on the liver biopsy. Meanwhile no plans to do a thoracentesis of the left lung knowing that the patient has a large consolidating mass in the left lower lobe, along with a small effusion and obtaining the left-sided pleural effusion may not give him any significant clinical benefit. Continue bronchodilators. Continue the antibiotics. Prognosis obviously poor baseline above-mentioned comorbidities.
[2016-06-27 17:06] LABS: Glucose,Whole Blood 182 mg/dL (75-99)
--- NOTE | 2016-06-27 17:13 | P.PN ---
Subjective Principal diagnosis: Lung mass and liver masses The patient is still weak and short of breath. He remains confused intermittently. He states that he feels somewhat better compared to his admission Objective - Vital Signs Vital signs: Vital Signs Temp 97.5 F L 06/27/16 11:58 Pulse 88 06/27/16 11:58 Resp 22 06/27/16 11:58 BP 130/62 06/27/16 11:58 Pulse Ox 95 06/27/16 11:58 Intake & Output 06/26/16 06/27/16 06/27/16 18:59 06:59 18:59 Intake Total 100 400 180 Output Total 550 425 Balance -450 -25 180 Weight 91.5 kg 90.3 kg Intake: IV 50 Piperacillin-Tazobactam 3 50 .375 gm In Dextrose/Water 1 50ml.bag @ 12.5 mls/hr IVPB Q8HR [facility] Rx#: [id number] Oral 100 350 180 Output: Urine 550 425 Other: Voiding Method Indwelling Catheter Indwelling Catheter Indwelling Catheter # Bowel Movements 1 - Constitutional General appearance: Present: no acute distress - EENT Eyes: Present: EOMI, PERRLA ENT: Present: hearing grossly normal - Respiratory Respiratory: bilateral: diminished - Cardiovascular Rhythm: irregularly irregular - Gastrointestinal General gastrointestinal: Present: normal bowel sounds, soft - Integumentary Integumentary: Present: normal - Neurologic Neurologic: Present: CNII-XII intact - Musculoskeletal Musculoskeletal: Present: generalized weakness - Labs CBC & Chem 7: 06/26/16 06:07 06/26/16 06:07 Labs: Abnormal Lab Results - Last 24 Hours (Table) 06/26/16 06/27/16 06/27/16 Range/Units 20:51 03:36 05:01 POC Glucose (mg/dL) 107 H 52 L 106 H (75-99) mg/dL 06/27/16 06/27/16 Range/Units 06:00 11:41 POC Glucose (mg/dL) 104 H 115 H (75-99) mg/dL Assessment and Plan (1) Lung mass Status: Acute (2) Liver masses Narrative/Plan: The preliminary report on the liver biopsy was discussed with pathology. Formal report will likely be available on 06/30/16. At this time the pathology appears to be most suggestive of a neuroendocrine tumor, likely high-grade. The patient is still confused, at least intermittently. We will set up a meeting with the family to discuss the diagnosis. Assuming that the diagnosis is confirmed on final pathology, his treatment options may be limited, based on his age and performance status, as well as the aggressiveness of the chemo regimens normally required to treat Status: Acute
[2016-06-27] MEDS: INSULIN GLARGINE 100 UNIT/ML 10 ML VIAL SQ SCH (20:40)
[2016-06-27 20:46] LABS: Glucose,Whole Blood 152 mg/dL (75-99)
[2016-06-28] MEDS: HYDROcodone/APAP 5-325MG 1 EACH TAB PO PRN ×2 (01:25→12:34)
[2016-06-28] MEDS: ALPRAZolam 0.25 MG TAB PO PRN ×3 (02:49→22:22)
[2016-06-28 03:20] LABS: Glucose,Whole Blood 61 mg/dL (75-99)
[2016-06-28 03:48] LABS: Glucose,Whole Blood 96 mg/dL (75-99)
[2016-06-28 06:02] LABS: Glucose,Whole Blood 68 mg/dL (75-99)
[2016-06-28] MEDS ORDERED: DEXTROSE 50%-WATER 50 ML SYRINGE IVP ONE (06:12)
[2016-06-28] MEDS: INSULIN LISPRO (humaLOG) 300 UNIT/3 ML VIAL SQ SCH ×4 (06:17→20:52)
[2016-06-28 06:23] LABS: Glucose,Whole Blood 140 mg/dL (75-99)
[2016-06-28] MEDS: PIPERACILLIN-TAZOBACTAM 3.375 GM in DEXTROSE/WATER 1 50ML.BAG IVPB SCH ×2 (08:42→15:16)
[2016-06-28] MEDS: predniSONE 10 MG TAB PO SCH (08:43)
[2016-06-28] MEDS: ALLOPURINOL 100 MG TAB PO SCH (08:43)
[2016-06-28] MEDS: DILTIAZEM CD 180 MG CAP.ER.24H PO SCH (08:44)
[2016-06-28] MEDS: METOPROLOL SUCCINATE (ER) 50 MG TAB.ER.24H PO SCH ×2 (08:44→20:54)
[2016-06-28] MEDS: NYSTATIN 100,000 UNIT/ML SUSP 500,000 UNIT/5 ML CUP PO SCH ×4 (08:59→20:52)
[2016-06-28] MEDS: PSYLLIUM HUSK 100% 6 GM PACKET PO SCH (08:59)
[2016-06-28] MEDS: SYMBICORT 80-4.5 MCG INHALER INHALATION SCH ×3 (09:02→19:42)
[2016-06-28] MEDS: IPRATROPIUM-ALBUTEROL 3 ML NEB INHALATION SCH ×4 (09:03→19:25)
--- NOTE | 2016-06-28 11:33 | P.PN ---
Progress Note - Text 85-year-old gentleman who is a patient of Dr. Collier's for whom I am covering. The patient was admitted just over a week ago with exacerbation of COPD and pneumonia. 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 Final report on pathology is likely to be on Thursday. Patient is not complaining of any pain but is short of breath with minimal exertion and easily fatigued. Also he is confused intermittently. Vital signs reveal temp of 97 with a pulse of 100 and blood pressure 130/60. He is 93% on 3 L nasal cannula. Breath sounds are diminished at bases. Heart tones irregular. Abdomen nontender. Grade 1 edema. No focal neurological deficits. Blood sugar was down to 61 but presently 140. Impressions and plans: Discussed with oncology Dr. Carranza and pulmonary medicine Dr. Mccullough. Discussed with patient and family at bedside. Awaiting final biopsy reports but patient and family agree to a no CODE STATUS. Likely may decide on hospice care down the line. Further recommendations pending final results of biopsy but prognosis is extremely guarded in any event. Comfort care appears to be in order.
[2016-06-28 11:45] LABS: Glucose,Whole Blood 71 mg/dL (75-99)
[2016-06-28 16:07] LABS: Glucose,Whole Blood 88 mg/dL (75-99)
[2016-06-28] MEDS: DIGOXIN 125 MCG TAB PO SCH (17:50)
[2016-06-28 19:46] LABS: Glucose,Whole Blood 73 mg/dL (75-99)
[2016-06-28] MEDS: INSULIN GLARGINE 100 UNIT/ML 10 ML VIAL SQ SCH (20:52)
[2016-06-28 20:57] LABS: Glucose,Whole Blood 97 mg/dL (75-99)
[2016-06-29 00:18] LABS: Glucose,Whole Blood 84 mg/dL (75-99)
[2016-06-29] MEDS: PIPERACILLIN-TAZOBACTAM 3.375 GM in DEXTROSE/WATER 1 50ML.BAG IVPB SCH ×2 (00:39→07:50)
[2016-06-29 03:05] LABS: Glucose,Whole Blood 59 mg/dL (75-99)
[2016-06-29 03:29] LABS: Glucose,Whole Blood 80 mg/dL (75-99)
[2016-06-29] MEDS: ALPRAZolam 0.25 MG TAB PO PRN ×3 (03:30→15:37)
[2016-06-29 06:11] LABS: Glucose,Whole Blood 88 mg/dL (75-99)
[2016-06-29] MEDS: INSULIN LISPRO (humaLOG) 300 UNIT/3 ML VIAL SQ SCH ×4 (06:26→21:44)
[2016-06-29] MEDS: DILTIAZEM CD 180 MG CAP.ER.24H PO SCH (07:49)
[2016-06-29] MEDS: ALLOPURINOL 100 MG TAB PO SCH (07:49)
[2016-06-29] MEDS: METOPROLOL SUCCINATE (ER) 50 MG TAB.ER.24H PO SCH ×2 (07:50→21:54)
[2016-06-29] MEDS: predniSONE 10 MG TAB PO SCH (07:50)
[2016-06-29] MEDS: PSYLLIUM HUSK 100% 6 GM PACKET PO SCH (07:51)
[2016-06-29] MEDS: NYSTATIN 100,000 UNIT/ML SUSP 500,000 UNIT/5 ML CUP PO SCH ×4 (07:51→21:54)
[2016-06-29] MEDS: IPRATROPIUM-ALBUTEROL 3 ML NEB INHALATION SCH ×4 (08:41→21:48)
[2016-06-29] MEDS: SYMBICORT 80-4.5 MCG INHALER INHALATION SCH ×2 (09:00→21:48)
[2016-06-29 11:37] LABS: Glucose,Whole Blood 104 mg/dL (75-99)
--- NOTE | 2016-06-29 13:26 | P.PN ---
Progress Note - Text He is an 85-year-old gentleman who is patient of Dr. Collier's for whom I am covering. The patient was admitted a little over a week ago with exacerbation of COPD and pneumonia. Subsequently through workup he has been found to have a high-grade neuroendocrine primary tumor likely of the lung with metastatic disease to the mediastinum and liver. The patient has been followed by pulmonary medicine and oncology and please refer to their notes. Overall final report on liver biopsies are pending but appears most likely the patient will be moved to hospice care. This morning he complains of fatigue. Does not appear to be in any major distress or pain though. He seems to be a bit confused but in no acute distress. Family is at bedside. Vital signs reveal temperature 98.3 with a pulse of 94 and respirations 16. Blood pressure is 136/79 and he is 94% saturated on room air at this time. Lungs are diminished at bases but no wheezing. Heart tones are somewhat irregular but controlled. Abdomen, is obese but nontender. Some pedal edema is present but no focal neurological deficits noted. Laboratory values revealed a blood sugar as low as 59 and as high as 104. Once again awaiting final reports of liver aspiration likely back tomorrow. Impressions and plans: Discussed with family and patient at bedside. They are aware of consultation placed with hospice care. Likely patient is to be moved to a general medical bed. Continue with no code no CPR status. DC telemetry. We will decrease his prednisone from 30-20 mg. We will also switch his antibiotics from IV to oral. Still overall prognosis is guarded. Also discussed with nursing staff.
[2016-06-29 17:29] LABS: Glucose,Whole Blood 97 mg/dL (75-99)
[2016-06-29 20:43] LABS: Glucose,Whole Blood 105 mg/dL (75-99)
[2016-06-29] MEDS ORDERED: AMOXIC-POT CLAV 500-125 MG 1 EACH TAB PO SCH (21:00)
--- NOTE | 2016-06-29 21:00 | P.PN ---
Subjective The patient remains very weak. He is persistently restless, and short of breath. Appetite is quite poor. He denies any pain. Objective - Vital Signs Vital signs: Vital Signs Temp 96.2 F L 06/29/16 16:00 Pulse 102 H 06/29/16 17:04 Resp 20 06/29/16 16:00 BP 121/60 06/29/16 16:00 Pulse Ox 92 L 06/29/16 16:00 Intake & Output 06/29/16 06/29/16 06/30/16 06:59 18:59 06:59 Intake Total 50 40 Output Total 300 302 Balance -250 -262 Weight 92.5 kg Intake: IV 50 Piperacillin-Tazobactam 3 50 .375 gm In Dextrose/Water 1 50ml.bag @ 12.5 mls/hr IVPB Q8HR [facility] Rx#: [id number] Oral 40 Output: Urine 300 300 Stool 2 Other: Voiding Method Indwelling Catheter Indwelling Catheter # Voids 1 - Constitutional General appearance: Present: mild distress - EENT Eyes: Present: EOMI, PERRLA ENT: Present: normal oropharynx - Respiratory Respiratory: bilateral: diminished - Cardiovascular Rhythm: irregularly irregular Heart sounds: normal: S1, S2 - Gastrointestinal General gastrointestinal: Present: hepatomegaly, normal bowel sounds, soft - Integumentary Integumentary: Present: normal - Neurologic Neurologic: Present: CNII-XII intact - Musculoskeletal Musculoskeletal: Present: generalized weakness - Psychiatric Psychiatric Comment(s): Intermittently confused with poor recall - Labs CBC & Chem 7: 06/26/16 06:07 06/26/16 06:07 Labs: Abnormal Lab Results - Last 24 Hours (Table) 06/29/16 06/29/16 06/29/16 Range/Units 02:54 11:35 20:24 POC Glucose (mg/dL) 59 L 104 H 105 H (75-99) mg/dL Assessment and Plan (1) Lung mass Status: Acute (2) Liver masses Narrative/Plan: The preliminary pathology report as discussed by myself with pathology, was discussed in detail with the patient and presence of multiple family members. It had been discussed previously with the patient, but his recall is very poor and he did not remember. This is most likely an aggressive neuroendocrine cancer , of lung origin. Clinically he has stage IV disease, which is not curable. The mainstay of treatment woud be aggressive systemic chemotherapy with an objective of prolongation of life and palliation of symptoms. However, given his current PS, I do not feel that he is an appropriate candidate for that treatment. It is very doubtful that he could tolerate standard regimens and derive any benefit from it. Prognosis with and without treatment was discussed. Case was also d/w the admitting service. At this time, the family were in agreement that the pt is a poor candidate for aggressive treatment. They are interested in comfort care. A hospice consult for an informational visit will be ordered. Status: Acute
[2016-06-29] MEDS: INSULIN GLARGINE 100 UNIT/ML 10 ML VIAL SQ SCH (21:44)
[2016-06-30] MEDS: HYDROcodone/APAP 5-325MG 1 EACH TAB PO PRN (00:20)
[2016-06-30 03:24] VITALS: BP 101/51; PULSE 107; TEMP 96.7
[2016-06-30 03:31] VITALS: RESP 20
[2016-06-30] MEDS ORDERED: LORazepam 2 MG/ML SYRINGE IV PRN (04:24)
[2016-06-30] MEDS ORDERED: SCOPOLAMINE 1.5MG/72HR PATCH TRANSDERM PRN (04:24)
[2016-06-30] MEDS ORDERED: MORPHINE SULFATE (100 MG/2 ML) 100 MG in SODIUM CHLORIDE 0.9% 100 ML IV SCH (04:30)
[2016-06-30] MEDS: IPRATROPIUM-ALBUTEROL 3 ML NEB INHALATION SCH (07:10)
[2016-06-30] MEDS: SYMBICORT 80-4.5 MCG INHALER INHALATION SCH (07:10)
[2016-06-30] MEDS: INSULIN LISPRO (humaLOG) 300 UNIT/3 ML VIAL SQ SCH (07:31)
--- NOTE | 2016-06-30 08:26 | P.PN ---
Progress Note - Text The patient is a 85-year-old gentleman. Patient of Dr. Collier's for whom I'm covering. Patient was admitted over a week ago with exacerbation of COPD and pneumonia with further evaluation patient has been found to have a high-grade neuroendocrine lung cancer with metastatic disease to the mediastinum and liver along with a likely postobstructive pneumonia. The patient clinically has been deteriorating despite treatment. He has been seen by oncology and pulmonary medicine. It is thought that with his stage IV cancer and functional status that he would not tolerate any treatment and has been accepted onto hospice care. Patient is presently on a morphine drip and appears overall comfortable. He is not responding to verbal stimulation. Lungs are diminished. Heart tones irregular and slightly tachycardic. He does have some mottling of the lower extremities. No focal neurological deficits. Impressions and plans: As discussed with the family at bedside. We'll continue with comfort care. No aggressive treatment or medications or testing. No code no CPR.
[2016-06-30] MEDS ORDERED: predniSONE 20 MG TAB PO SCH (09:00)
--- NOTE | 2016-07-27 14:40 | P.DS ---
Providers Date of admission: 06/20/16 17:05 Attending physician: Jatinder Collier Consults: 06/25/16 08:01 Consult Physician Urgent Consulting Provider: Kofi Hutchinson Consult Reason/Comments: pulmonary mass Do you want consulting provider notified?: Yes 06/25/16 09:01 Consult Physician Urgent Consulting Provider: Narinder Carranza Consult Reason/Comments: liver/lung mass Do you want consulting provider notified?: Yes Primary care physician: Jatinder Collier Hospital Course: Hospital course: This 85-year-old gentleman was admitted to the hospital for shortness of breath cough congestion and low-grade fever. Patient's noted to have evidence suggestive of possible pneumonia. The patient following admission was started on antibiotics. He was feeling reasonably well. The patient had elevated LFT and was recommended to stop his statin drugs. The patient was seen by me for the couple of days. I will subsequently awake. The patient during that period was followed by Dr. Witt. Due to persistently elevated liver enzymes and ultrasound of the liver was done which revealed metastatic disease. Further evaluation including CAT scan of the chest abdomen and pelvis done suggested most likely an obstructive lesion in the left bronchus related to malignancy. The patient had mediastinal lymph nodes. Liver biopsy showed an aggressive neuroendocrine malignancy most likely from the lung. Patient's general condition deteriorating patient was converted to hospice comfort care and patient . Patient's family had been informed by Dr. Witt about the poor prognosis. Patient had been sent by the die press operator as well as the oncologist. Patient has history of diabetes mellitus blood sugars fluctuating with treatment. Final diagnosis 1. Pneumonia secondary to obstructive etiology. 2. Carcinoma lung 3. COPD 4. Acute on chronic respiratory failure 5. Diabetes mellitus 6. Hypertension 7. Chronic kidney disease stage III 8. BPH with chronic urinary retention 9. Chronic Cornejo catheter 10. Atrial fibrillation paroxysmal 11. Chronic anxiety 12. Hepatic metastasis Patient Condition at Discharge: Fair Plan - Discharge Summary Discharge Medication List Fluticasone/Salmeterol [Advair 100-50 Diskus] 1 puff INHALATION RT-BID 01/16/14 [History] Diltiazem HCl [Diltiazem 24Hr ER] 180 mg PO DAILY 06/12/14 [History] Glimepiride [Amaryl] 4 mg PO AC-BID tab 08/05/14 [Rx] Metoprolol Succinate (ER) [Toprol XL] 50 mg PO BID tab.er.24h 08/05/14 [Rx] Chlorthalidone [Hygroton] 12.5 mg PO DAILY tab 10/24/14 [Rx] Ipratropium-Albuterol Nebulize [Duoneb 0.5 mg-3 mg/3 ml Soln] 3 ml INHALATION RT -TID PRN 10/31/14 [History] Digoxin [Lanoxin] 125 mcg PO Q48H 07/31/15 [History] ALPRAZolam [Xanax] 0.25 mg PO QID PRN 10/13/15 [History] Allopurinol [Zyloprim] 100 mg PO DAILY 10/13/15 [History] Warfarin [Coumadin] 2.5 mg PO SUMOWETHSA 11/11/15 [History] Warfarin [Coumadin] 5 mg PO TUFR 11/11/15 [History] Furosemide [Lasix] 20 mg PO TID 11/27/15 [History] Insulin Detemir [Levemir] See Protocol SQ HS 06/20/16 [History] [place]-3 Fatty Acids/Fish Oil [Fish Oil 1,000 mg Softgel] 1 cap PO DAILY [History] Psyllium Husk 100% [Metamucil] 6 gm PO DAILY 06/20/16 [History] Simvastatin [Zocor] 10 mg PO Q48H 06/20/16 [History] Follow up Appointment(s)/Referral(s): Jatinder Collier MD [Primary Care Provider] - 1-2 days Discharge Disposition: DISCH TO [facility]
== END 2016-06-30 07:51 | disposition hospice, inpatient (51) | DRG 180 ==
LOC: EC 08:51 → 6SEL 17:05 → 5ONC 06-29 14:13
PROVIDERS: ADMIT Internal Medicine; ATTEND Internal Medicine
PROC: 0T9B70Z Drainage of Bladder with Drainage Device, Via Natural or Artificial Opening (ICD-10-PCS; 2016-06-20)
PROC: 0FB23ZX Excision of Left Lobe Liver, Percutaneous Approach, Diagnostic (ICD-10-PCS; principal; 2016-06-26)
DX: C34.32 Malignant neoplasm of lower lobe, left bronchus or lung (principal); J18.9 Pneumonia, unspecified organism; I50.33 Acute on chronic diastolic (congestive) heart failure; J96.11 Chronic respiratory failure with hypoxia; C77.1 Secondary and unspecified malignant neoplasm of intrathoracic lymph nodes; J44.0 Chronic obstructive pulmonary disease with (acute) lower respiratory infection; I13.0 Hypertensive heart and chronic kidney disease with heart failure and stage 1 through stage 4 chronic kidney disease, or unspecified chronic kidney disease; J44.1 Chronic obstructive pulmonary disease with (acute) exacerbation; R44.3 Hallucinations, unspecified; C78.7 Secondary malignant neoplasm of liver and intrahepatic bile duct; C78.1 Secondary malignant neoplasm of mediastinum; E11.22 Type 2 diabetes mellitus with diabetic chronic kidney disease; R16.0 Hepatomegaly, not elsewhere classified; Z66 Do not resuscitate; Z51.5 Encounter for palliative care; E11.649 Type 2 diabetes mellitus with hypoglycemia without coma; I48.2 Chronic atrial fibrillation; E78.5 Hyperlipidemia, unspecified; F41.9 Anxiety disorder, unspecified; G89.29 Other chronic pain; I25.10 Atherosclerotic heart disease of native coronary artery without angina pectoris; N18.3 Chronic kidney disease, stage 3 (moderate); I35.0 Nonrheumatic aortic (valve) stenosis; E87.5 Hyperkalemia; T45.515A Adverse effect of anticoagulants, initial encounter; E11.42 Type 2 diabetes mellitus with diabetic polyneuropathy; M48.06 Spinal stenosis, lumbar region; M54.16 Radiculopathy, lumbar region; K12.0 Recurrent oral aphthae; D72.829 Elevated white blood cell count, unspecified; R41.0 Disorientation, unspecified; R91.1 Solitary pulmonary nodule; K58.0 Irritable bowel syndrome with diarrhea; N40.1 Benign prostatic hyperplasia with lower urinary tract symptoms; R33.8 Other retention of urine; K21.9 Gastro-esophageal reflux disease without esophagitis; R74.0 Nonspecific elevation of levels of transaminase and lactic acid dehydrogenase [LDH]; K57.30 Diverticulosis of large intestine without perforation or abscess without bleeding; M19.90 Unspecified osteoarthritis, unspecified site; N31.2 Flaccid neuropathic bladder, not elsewhere classified; R53.1 Weakness; R63.4 Abnormal weight loss; R26.9 Unspecified abnormalities of gait and mobility; R29.6 Repeated falls; Z91.81 History of falling; Z98.52 Vasectomy status; Z79.01 Long term (current) use of anticoagulants; Z98.49 Cataract extraction status, unspecified eye; Z82.3 Family history of stroke; Z83.3 Family history of diabetes mellitus; Z87.01 Personal history of pneumonia (recurrent); Z16.24 Resistance to multiple antibiotics; Z85.828 Personal history of other malignant neoplasm of skin; Z87.891 Personal history of nicotine dependence; Z90.49 Acquired absence of other specified parts of digestive tract; Z90.2 Acquired absence of lung [part of]; Z82.49 Family history of ischemic heart disease and other diseases of the circulatory system; Z96.0 Presence of urogenital implants; Z88.2 Allergy status to sulfonamides; Z88.8 Allergy status to other drugs, medicaments and biological substances; Z86.010 Personal history of colon polyps; Z86.19 Personal history of other infectious and parasitic diseases; Z99.81 Dependence on supplemental oxygen; Z79.84 Long term (current) use of oral hypoglycemic drugs; Z79.4 Long term (current) use of insulin; Z79.891 Long term (current) use of opiate analgesic; Z79.51 Long term (current) use of inhaled steroids; Z79.899 Other long term (current) drug therapy; Z71.3 Dietary counseling and surveillance
CPT/HCPCS: 36415; 47000; 71010; 71020; 71250; 74176; 76705; 76942; 80048; 80053; 80074; 82105; 82378; 82550; 82553; 83605; 83735; 83880; 84484; 85025; 85027; 85379; 85610; 85730; 87040; 88307; 88341; 88342; 93005; 93306; 94640; 94760; 96365; 96375; 99285

== ENCOUNTER 2016-06-30 08:10 | Inpatient (IN) | payer MEDICARE, OTHER ==
[2016-06-30] MEDS ORDERED: LORazepam 2 MG/ML SYRINGE IV PRN (09:02)
[2016-06-30] MEDS ORDERED: BISACODYL 10 MG SUPP RECTAL PRN (09:03)
[2016-06-30] MEDS ORDERED: MORPHINE SULFATE 100 MG in SODIUM CHLORIDE 0.9% 100 ML IV SCH (09:15)
[2016-06-30] MEDS ORDERED: SCOPOLAMINE 1.5MG/72HR PATCH TRANSDERM PRN ×3 (10:00)
--- NOTE | 2016-07-01 10:27 | DS ---
DATE OF ADMISSION: 06/30/2016 DATE OF DISCHARGE: 06/30/2016 DISCHARGE/EXPIRATION NOTE: Mr. Wall was an 85-year-old gentleman who was admitted back around the June as he presented to the emergency room with cough, shortness of breath. The patient was admitted. He is a patient of Dr. Jatinder Crook. He was admitted with underlying exacerbation of COPD and pneumonia. He did have elevated liver function tests that did not resolve. His initial respiratory symptoms were treated with corticosteroids along with antibiotics, respiratory treatments, which did offer some initial improvement, but further workup of the elevated liver functions involved consultations with Gastroenterology and a CAT scan was performed of the chest, abdomen and pelvis revealing what appeared to be a left lower lobe lung lesion with some postobstructive pneumonitis along with metastatic disease in the mediastinum and liver. This was also seen on an ultrasound of the abdomen. The initial metastatic disease. The patient also was consulted by Oncology, Dr. Carranza and pulmonary medicine, Dr. Mccullough. After discussion, a biopsy, aspiration fine-needle of the liver was undertaken. The results of which showed a high-grade neuroendocrine lung carcinoma. The patient's functional status though continued to deteriorate and long discussions were engaged with specialists as mentioned above and patient and family. In light of his declining physical status, age and underlying disease processes, the patient was deemed a hospice patient and they were consulted. Patient subsequently continued to deteriorate with further respiratory and cardiovascular status decreased and eventually on the 30 of June. The actual underlying cause of and actually primary diagnosis is the high-grade neuroendocrine lung tumor with postobstructive pneumonitis and severe exacerbation of underlying chronic obstructive pulmonary disease and this also involved metastatic disease to the mediastinum and liver. Other diagnoses includes: 1. Advanced chronic obstructive pulmonary disease. 2. Underlying diabetes. 3. Chronic persistent atrial fibrillation. 4. Acute and chronic diastolic congestive heart failure. 5. Anxiety. 6. Benign prostatic hypertrophy. 7. Previous history of a partial right lower lobe lobectomy. 8. Previous appendectomy and cholecystectomy. MTDD
== END 2016-06-30 12:55 | disposition expired | DRG 843 ==
LOC: 5ONC 08:10
PROVIDERS: ADMIT Internal Medicine; ATTEND Internal Medicine
DX: C7A.1 Malignant poorly differentiated neuroendocrine tumors (principal); I50.33 Acute on chronic diastolic (congestive) heart failure; J18.9 Pneumonia, unspecified organism; J44.1 Chronic obstructive pulmonary disease with (acute) exacerbation; I48.1 Persistent atrial fibrillation; J44.0 Chronic obstructive pulmonary disease with (acute) lower respiratory infection; E11.9 Type 2 diabetes mellitus without complications; Z66 Do not resuscitate; F41.9 Anxiety disorder, unspecified; N40.0 Benign prostatic hyperplasia without lower urinary tract symptoms; Z90.49 Acquired absence of other specified parts of digestive tract; Z90.2 Acquired absence of lung [part of]; Z79.01 Long term (current) use of anticoagulants; Z79.4 Long term (current) use of insulin; Z79.51 Long term (current) use of inhaled steroids; Z79.899 Other long term (current) drug therapy